=== PATIENT | female | born 1955 | race Caucasian/White ===

== ENCOUNTER 2018-08-22 07:48 | Inpatient (IN) | payer MEDICARE, SELFPAY ==
[2018-08-22] VITALS (12 sets, daily range): BP systolic 104–139; BP diastolic 65–74; PULSE 75–85; RESP 17–20; TEMP 36.6–37.2; O2SAT 79–97; BMI 15.3; BMI 13.6; BMI 13.7
--- NOTE | 2018-08-22 08:04 | EKG12_ITS ---
Test Reason : SOB Blood Pressure : / mmHG Vent. Rate : 071 BPM Atrial Rate : 071 BPM P-R Int : 120 ms QRS Dur : 068 ms QT Int : 388 ms P-R-T Axes : 087 087 036 degrees QTc Int : 421 ms Normal sinus rhythm Poor R-Wave Progression Confirmed by PAMELA BARTLETT, GARY ([id number]), offline editor YAHAIRA NGUYEN ([id number]) on 08/25/2018 11:41:40 AM Referred By: Jovan Sarmiento Confirmed By:GARY SANTIAGO MD
--- NOTE | 2018-08-22 08:04 | RAD_ITS ---
STUDY: X-RAY CHEST REASON FOR EXAM: Female, 63 years old. Worsening shortness of breath TECHNIQUE: Single AP portable view of the chest. COMPARISON: None. FINDINGS: There is hyperinflation of the lungs consistent with chronic obstructive lung disease (COPD). There is no demonstrated pleural abnormality. 1 cm nodule over the left lower lung field likely represents a nipple shadow. Normal size heart. Normal mediastinum and carlton. Normal visualized pulmonary arteries. Normal visualized aortic arch and descending thoracic aorta. There are diffuse degenerative changes of the visualized thoracic spine. Normal visualized ribs, clavicles, and shoulders. There is no demonstrated abnormality of the visualized soft tissue structures of the upper abdomen. RAD/Chest 1 View (Portable) IMPRESSION: Hyperexpanded lungs, no superimposed acute pulmonary process Electronically Signed: Nick Zavala MD at 8:48 EDT , Service support ,
--- NOTE | 2018-08-22 08:07 | ED.VISSUMM ---
- ER Visit Summary Date of Service: 08/22/18 Chief Complaint: Shortness of breath History of Present Illness: The patient is a 63 F with a history of COPD, not on home oxygen. She complains of a 5-day history of increased shortness of breath, cough, wheezing. She does report chest heaviness that is worse with cough. She checked her oxygen saturation at home this morning and it was 75% on room air. She is scheduled to see a cable reeler in September, but does not currently follow with pulmonology. Physical Examination: Blood pressure is 139/74, temperature 98.9, heart rate 79, respiratory rate 20, pulse ox 79% on room air. At the time of my examination her oxygen saturation is in the high 90s on 2 L nasal cannula. Patient sitting upright in bed in no acute distress. She is speaking full sentences. Head and neck examination is grossly unremarkable. Heart is regular rate and rhythm. Lung sounds are diminished throughout. Abdomen is soft and nontender. Extremity examination reveals no significant calf tenderness or edema. Test Results: EKG is sinus at 71 with no sign of acute ischemia. Portable chest x-ray shows hyperexpanded lungs with no acute process. CBC and chemistry studies normal. Troponin negative. Emergency Department Course and Treatment: Patient was initially given cycle of aerosols. O2 sat was 100% on 2 L. She was taken off of oxygen and dropped to 89% just sitting at rest. She was placed back on oxygen. She will be given a small dose of IV Solu-Medrol. She does list an allergy to prednisone but states it keeps her from sleeping. She will also be given a p.o. dose of Levaquin. Treatment Plan: [] Disposition: Admit Impression: COPD exacerbation with hypoxia This note was generated with [employer] dictation software. It may contain incorrect words, spelling, and punctuation that were not noted in review of the chart prior to signing ED Disposition - Plan for ED Patient: Referrals: Andrea Dalton DO [Primary Care Provider] -
[2018-08-22] MEDS: Ipratropium/Albuterol Sulfate 3 ML AMPUL.NEB INHALATION ×3 (08:30→22:01)
[2018-08-22] MEDS: Albuterol 2.5 MG/3 ML VIAL.NEB. INHALATION ×2 (08:30)
[2018-08-22 08:33] LABS: Absolute Lymphocyte Count 1.64 X10^3/ul (0.83-4.51); Basophil# 0.04 X10^3/uL; Basophil% 0.8 % (0-1); Eosinophil# 0.16 X10^3/uL; Eosinophils% 3.1 % (0-5); Hematocrit 42.4 % (37-47); Lymphocyte # 1.64 X10^3/ul (4.0); Lymphocyte % 31.4 % (19-41); Mean Corpuscular Hgb 30.9 pg (27.0-32.0); Mean Corpuscular Volume 93.6 fL (81-99); Mean Platelet Vol. 8.9 fl (6.2-12.0); Monocyte# 0.33 X10^3/uL; Monocyte% 6.3 % (0-10); Neutrophil # 3.04 X10^3/uL (2.7-7.7); Neutrophil % 58.2 % (47-70); Platelet Count 209 K/mm3 (150-450); RBC Distribution Width CV 13.8 % (11.6-14.6); RBC Distribution Width SD 46.8 fl (35.1-43.9); Red Blood Count 4.53 M/mm3 (4.2-5.4); White Blood Count 5.2 K/mm3 (4.4-11.0)
[2018-08-22 08:34] LABS: POSITIVE COUNT NO; POSITIVE DIFFERENTIAL NO; POSITIVE MORPHOLOGY NO
[2018-08-22] MEDS: 0.9% Normal Saline 1,000 ML 15 ML IV (08:36)
[2018-08-22 08:46] LABS: Anion Gap 6 (5-15); BUN 10 mg/dL (7-18); BUN/Creat Ratio 11.8 RATIO (10-20); Calcium,Total 9.1 mg/dL (8.5-10.1); Chloride 106 mmol/L (98-107); Creatinine, Serum 0.85 mg/dL (0.55-1.02); EST Glomerular Filtration Rate 72 mL/min (>60); Est Glom Filt Rate - Afr Amer 87 mL/min (>60); Estimated Creatinine Clearance 38.95 ml/min; Glucose 103 mg/dL (74-106); Potassium 3.9 mmol/L (3.5-5.1); Sodium Level 141 mmol/L (136-145)
[2018-08-22] MEDS: levoFLOXacin 500 MG Tablet PO (09:48)
[2018-08-22] MEDS: DiphenhydrAMINE 50 MG/ML Syringe 12.5 MG IV (10:48)
--- NOTE | 2018-08-22 12:00 | CASEMGMT ---
Addendum entered by Christa Clark 08/22/18 15:48: D/T pt having concerns of electrical safety issues within her home and Oxygen concentrator, call placed to [facility]. Inquired about Liquid O2 and spoke with [facility]. She stated d/t safety concerns, they are able to provide liquid O2 to pt on discharge if she does qualify for O2. Pt made aware and voiced appreciation. See Green sheet on chart with instructions for home O2 and portability if pt discharges over the weekend. Original Note: RN CM ANIMAL GROOMER CM to room to meet with patient for initial transition planning/care coordination assessment. HINA JUAN introduced self and role at [facility]. Pt voices understanding and consents to assessment at this time. Pt sitting on edge of bed in no distress at this time. Pt is A/O at this time and answers all questions appropriately. Care providers, pharmacy, and demographics verified/updated at this time. PCP: [facility] Specialists: Scheduled to see Dr Keith in September as a new patient. [facility] Insurance: [facility] A & B Prescription Benefit: None Living Will/HPOA: Pt does not currently have LW/HCPOA. [facility] would like to talk to CESIA to complete paperwork. CESIA Justin, notified. LNOK: , daughter Living Arrangements: States she lives with her and 29-yr-old daughter in a one-story apt that they rent. States she is independent with personal ADL's, such as bathing/dressing up until recently when I got so short of breath. States her daughter is supportive and assists her. States daughter does cleaning, yardwork, and helping to carry in groceries. Otherwise, pt states she manages all other home mgmt tasks such as cooking and laundry. Transportation: Pt states drives self and states no transportation concerns at this time. Daughter also drives and can assist. DME: States has the following DME: Rails/grab bars, hand-held shower, cane. has shower chair she could use if she needed it. Does not have home O2 or nebulizer. She states she lives in an old building/duplex and has concerns about the electrical system in her place. She states my is on oxygen and I don't think the electrical system could handle another thing added to it. States if she would need Home O2 on discharge she is very concerned about the electric shorting out and causing a fire if another oxygen concentrator is used in her home. She states the landlord is aware of the electrical issues, but states, I don't think he cares as long as he gets his money. Pt states no need for further DME at this time. HHC/SNF: Has never been to a SNF or used HHC. Declines offer of HHC for skilled nurse visit/follow-up. Also discussed Homebound requirements by [facility] and pt states she is not homebound. Pt wishes to return home and states has no concerns with going home at time of discharge. Pt states is on disability and that she has limited resources but states, I make it work. Offered to have SW talk with her to provide additional resources but pt declines. CM to follow for home oxygen needs and any further discharge planning/needs. Pt voices no further concerns/needs at this time. Advised pt to ask for CM if any further questions/concerns/needs arise. Voices understanding. PLAN: Home with family support and discharge plans in place. Will need home O2 qualification testing completed prior to discharge. If pt qualifies for home O2 on discharge, green sheet on chart for [employer]. SW consult for Advanced Directives. Carla CANTOR RN CM Initialized on 08/22/18 12:16 - END OF NOTE
--- NOTE | 2018-08-22 12:16 | CASEMGMT ---
RN YESSICA CERTIFIED ETHICAL HACKER CM to room to meet with patient for initial transition planning/care coordination assessment. HINA JUAN introduced self and role at [facility]. Pt voices understanding and consents to assessment at this time. Pt sitting on edge of bed in no distress at this time. Pt is A/O at this time and answers all questions appropriately. Care providers, pharmacy, and demographics verified/updated at this time. PCP: [facility] Specialists: Scheduled to see Dr Keith in September as a new patient. [facility] Insurance: [facility] A & B Prescription Benefit: None Living Will/HPOA: Pt does not currently have LW/HCPOA and declines info at this time. Pt made aware that he can contact SW as an out-pt and make appt in the future if he decides he would like to talk with someone about this or would like to utilize [facility] social work for advanced directive completion. Given [employer] Rac card with information and contact number. Pt expresses understanding. States does not have LW or HCPOA . Interested in more information but states does not want to talk with SW at this time to complete paperwork. Provided information on advanced directives and given Social Service rac card with number to call if chooses in the future to utilize [facility] social work for advanced directive completion. Educated patient that, if patient so chooses, can come back to [facility] and meet with a SW as an outpatient to complete health care advanced directives. Patient expresses understanding. LNOK: , daughter Living Arrangements: States she lives with her and 29-yr-old daughter in a one-story apt that they rent. States she is independent with personal ADL's, such as bathing/dressing up until recently when I got so short of breath. States her daughter is supportive and assists her. States daughter does cleaning, yardwork, and helping to carry in groceries. Otherwise, pt states she manages all other home mgmt tasks such as cooking and laundry. Transportation: Pt states drives self and states no transportation concerns at this time. Daughter also drives and can assist. DME: States has the following DME: Rails/grab bars, hand-held shower, cane. has shower chair she could use if she needed it. Does not have home O2 or nebulizer. She states she lives in an old building/duplex and has concerns about the electrical system in her place. She states my is on oxygen and I don't think the electrical system could handle another thing added to it. States if she would need Home O2 on discharge she is very concerned about the electric shorting out and causing a fire if another oxygen concentrator is used in her home. She states the landlord is aware of the electrical issues, but states, I don't think he cares as long as he gets his money. Pt states no need for further DME at this time. HHC/SNF: Has never been to a SNF or used HHC. Declines offer of HHC for skilled nurse visit/follow-up. Also discussed Homebound requirements by [facility] and pt states she is not homebound. Pt wishes to return home and states has no concerns with going home at time of discharge. CM to follow for home oxygen needs and any further discharge planning/needs. Pt voices no further concerns/needs at this time. Advised pt to ask for CM if any further questions/concerns/needs arise. Voices understanding. PLAN: Home with family support and discharge plans in place. Will need home O2 qualification testing completed prior to discharge. If pt qualifies for home O2 on discharge, green sheet on chart for [employer]. Carla CANTOR RN CM
--- NOTE | 2018-08-22 12:24 | PCM.HP.STD ---
Problem List (1) COPD exacerbation Status: Acute (2) Chronic diarrhea Status: Chronic (3) Cancer adenomatous polyp Status: Chronic (4) Cachexia Status: Chronic History of Present Illness Date of Admission: 08/22/18 Chief Complaint: Progressive worsening of shortness of breath, cough and wheezing for 5 days The patient is a 63 year old F with history of COPD, was scheduled to see Dr. Keith came to ER with shortness of breath cough and wheezing. Patient has progressive worsening of cough for more than a year with a small amount of exertion/climbing stairs but got worse for last 5 days along with cough, wheezing and right upper chest heaviness, worse with coughing. Patient I will also first-time hemoptysis, small amount teased with cough on past 08/19 2018. Patient also has chronic diarrhea since 2012 about 10-12 loose to soft bowel movements every day. Patient had multiple colonoscopy about 4 colonoscopies between 2013?16 with multiple polyps removed, part of which one was cancerous, 2-3 precancerous and rest benign. Patient did follow with Dr. Carr, past [facility] and Dr. Gregory in the past. She does not want to follow any GI because her insurance will not pay for further polypectomy. Patient denies obvious GI bleed including melena, hematochezia or Hematemesis She also has loss of weight with her weight was about 116 3 years ago and gradually decreased to 70 pounds. [] Past Medical History Past Medical History (Chronic Problems): Chronic Problems Chronic diarrhea (Chronic) Cancer adenomatous polyp (Chronic) Cachexia (Chronic) Allergies azithromycin Adverse Reaction (Verified 08/22/18 07:51) Hives cucumber Adverse Reaction (Verified 08/22/18 11:20) Swelling loratadine [From Claritin] Adverse Reaction (Verified 08/22/18 07:51) Itching prednisone Adverse Reaction (Verified 08/22/18 11:19) Other doesnt sleep. peaches Adverse Reaction (Uncoded 08/22/18 11:20) Swelling Home Medications: Ambulatory Orders Medication Instructions Recorded Albuterol Inhaler [Ventolin Hfa 1 - 2 puff INHALATION Q4H PRN PRN 08/22/18 (SP)] Duloxetine HCl 60 mg PO DAILY 08/22/18 Melatonin 10 mg PO QHS PRN 08/22/18 Smoking Status: Current every day smoker Tobacco Use: Cigarettes - *Family History Paternal History Items: Heart Disease Review of Systems Constitutional: Reports: Anorexia, Chills, Malaise, Weakness, Weight Change, Fatigue. Denies: Fever HEENT: Denies: Head Aches, Sinus Congestion, Sinus Drainage Cardiovascular: Reports: Chest Tightness. Denies: Chest Pain, Palpitations Respiratory: Reports: Cough, Hemoptysis, Shortness of Breath, Shortness of breath at rest, Shortness of breath upon exertion, Wheezing, - - Patient also has dyspnea and orthopnea and laying down but denies PND. Denies: Sputum production Gastrointestinal: Denies: Abdominal Pain, Hematemesis, Hematochezia, Nausea, Melena, Vomiting Genitourinary: Denies: Dysuria Musculoskeletal: Denies: Joint Pain, Joint Tenderness Skin: Denies: Rash, Wounds Neurological: Denies: Numbness, Tingling, Focal weakness Psychiatric: Denies: Anxiety, Depression, Homicidal Ideations, Suicidal Ideations Hematologic/ Lymphatic: Denies: Easy Bruising, Easy Bleeding VTE Information - Inpt Only VTE Present on Admission: No VTE Mechan Device Prophylaxis: None VTE Pharm Prophylaxis ordered?: Yes Patient Problems: Active and Suspected Problems COPD exacerbation (Acute) - Physical Exam General: Alert, Oriented x3, Cooperative HEENT: Atraumatic, PERRLA, EOMI, Normocephalic Neck: Supple, No JVD, Negative Carotid Bruits Lungs: Diminished - Air entry severely diminished bilaterally, Rhonchi, Short of Breath, Wheezes Cardiovascular: Regular rate, Regular Rhythm, Normal S1, Normal S2, No murmurs Abdomen: Bowel Sounds Present, Soft, Non Tender, Non-Distended Extremities: No edema, Capillary Refill Less than 3 Seconds Skin: No rashes, No breakdown Musculoskeletal: No Tenderness to Palpation of Joints or Extremities, Arthritic Changes, Muscle Wasting Lymphatic: No Cervical, Supraclavicular, or Inguinal Adenopathy Neurological: Cranial nerves II-XII grossly intact, Deep Tendon Reflexes 2+/4 and Symmetrical, Neuro grossly intact Psych/Mental Status: Normal Affect, Appropriate Vital Signs Temp Pulse Resp BP Pulse Ox 98.0 F 81 18 104/70 97 08/22/18 10:48 08/22/18 11:35 08/22/18 10:48 08/22/18 10:48 04/26/19 10:48 Oxygen Flow Rate (L/min) 2 Oxygen Delivery Method Nasal Cannula Weight: 70 lb Body Mass Index (BMI) 13.6 Laboratory Tests Past 24 Hrs 08/22/18 08/22/18 08:24 08:24 WBC 5.2 RBC 4.53 Hgb 14.0 Hct 42.4 MCV 93.6 MCH 30.9 MCHC 33.0 RDW 13.8 RDW Differential 46.8 H Plt Count 209 MPV 8.9 Immature Gran % (Auto) 0.200 Neut % (Auto) 58.2 Lymph % (Auto) 31.4 [place] % (Auto) 6.3 Eos % (Auto) 3.1 Baso % (Auto) 0.8 Absolute Neuts (auto) 3.0 Absolute Lymphs (auto) 1.64 Total Counted Not Reportable Sodium 141 Potassium 3.9 Chloride 106 Carbon Dioxide 29.0 Anion Gap 6 BUN 10 Creatinine 0.85 Estim Creat Clear Calc 38.95 Est GFR (MDRD) Af Amer 87 Est GFR (MDRD) Non-Af 72 BUN/Creatinine Ratio 11.8 Glucose 103 Calcium 9.1 Troponin I < 0.015 Assessment/Plan All Active Problems COPD exacerbation (Acute) The patient is a 63 year old F with history of COPD, was scheduled to see Dr. Keith came to ER with shortness of breath cough and wheezing. Patient has progressive worsening of cough for more than a year with a small amount of exertion/climbing stairs but got worse for last 5 days along with cough, wheezing and right upper chest heaviness, worse with coughing. Patient I will also first-time hemoptysis, small amount teased with cough on past 08/19 2018. Patient also has chronic diarrhea since 2012 about 10-12 loose to soft bowel movements every day. Patient had multiple colonoscopy about 4 colonoscopies between 2013?16 with multiple polyps removed, part of which one was cancerous, 2-3 precancerous and rest benign. Patient did follow with Dr. Carr, past [facility] and Dr. Gregory in the past. She does not want to follow any GI because her insurance will not pay for further polypectomy. Patient denies obvious GI bleed including melena, hematochezia or Hematemesis She also has loss of weight with her weight was about 116 3 years ago and gradually decreased to 70 pounds. 1. COPD exacerbation with respiratory distress: The patient is being admitted on MedSurg floor. On bronchodilator, DuoNeb, IV Solu-Medrol, incentive spirometry and chest physiotherapy. Sputum culture ordered. Chest x-ray shows chronic features of COPD but no superimposed acute pulmonary process. 2. Chest heaviness pleuritic in nature: EKG is normal sinus rhythm no ST-T changes. Troponin is negative. Patient does not have history of coronary artery disease, no previous stents. 3. Chronic diarrhea with history of cancerous adenomatous polyp: Chronic features. Patient was advised to follow-up with GI/general surgeon as an outpatient but she is not convinced as her insurance does not cover. 4. 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 On nutritional supplement Chronic nicotine dependence: Patient started smoking at the age of 20 with 1 pack per daily and slowly she cut down to 1-1/2 pack lasting 2 to 3 days. She is still smoking. On nicotine patch 5. DVT prophylaxis: Because of her underweight/BMI 13.7, will keep Lovenox 30 minutes subcu daily to avoid GI bleed. Stool for occult blood ordered Laboratory Results 08/22/18 08:24: WBC 5.2, RBC 4.53, Hgb 14.0, Hct 42.4, MCV 93.6, MCH 30.9, MCHC 33.0, RDW 13.8, RDW Differential 46.8 H, Plt Count 209, MPV 8.9, Immature Gran % (Auto) 0.200, Neut % (Auto) 58.2, Lymph % (Auto) 31.4, [place] % (Auto) 6.3, Eos % (Auto) 3.1, Baso % (Auto) 0.8, Absolute Neuts (auto) 3.0, Absolute Lymphs (auto) 1.64, Total Counted Not Reportable 08/22/18 08:24: Sodium 141, Potassium 3.9, Chloride 106, Carbon Dioxide 29.0, Anion Gap 6, BUN 10, Creatinine 0.85, Estim Creat Clear Calc 38.95, Est GFR (MDRD) Af Amer 87, Est GFR (MDRD) Non-Af 72, BUN/Creatinine Ratio 11.8, Glucose 103, Calcium 9.1, Troponin I < 0.015 Clinical Impression(s) from Imaging Studies Chest X-Ray 04/26/19 08:04 IMPRESSION: Hyperexpanded lungs, no superimposed acute pulmonary process = Code Visit Inpatient E&M: 83849 Subs Hosp L3
[2018-08-22] MEDS: guaiFENesin 1,200 MG Tablet 1200 MG PO ×2 (12:25→21:36)
[2018-08-22] MEDS: Doxycycline 100 MG CAPSULE PO ×2 (12:25→21:37)
[2018-08-22] MEDS: 0.9% Normal Saline 1,000 ML 75 ML IV (12:25)
[2018-08-22] MEDS: Famotidine 20 MG Tablet PO ×2 (12:25→21:36)
[2018-08-22] MEDS: Enoxaparin 30 MG/0.3 ML Syringe SC (12:30)
--- NOTE | 2018-08-22 13:44 | CASEMGMT ---
Social Work Note CESIA updated that pt would like information regarding advanced directives. CESIA met with pt, introduced self and role at [facility]. Pt is alert and orientated x4. Pt's daughter present in room. Pt gave this worker permission to speak to her in front of her guest. SW provided pt with advanced directives documents, encouraged pt to review documents and talk to family members. Pt denied wanting to complete documents at this time, does confirm she would like time to review documents. CESIA informed pt that SW is available to complete documents tomorrow if pt wishes to do so. CESIA also provided pt with Social Service Rac Card, informed pt she is able to call number on card if she discharges and would like to make appointment to complete documents at later time. Pt states understanding. Nola Lugo SCIENTIFIC PROCESS OPERATOR, TRAFFIC TECHNICIAN
[2018-08-22] MEDS: 0.9% NaCl Peripheral Flush Adult/Peds IV (14:49)
[2018-08-22 22:55] LABS: Bedside Glucose 168 mg/dL (70-110)
[2018-08-23] VITALS (14 sets, daily range): BP systolic 102–132; BP diastolic 54–77; PULSE 72–107; RESP 18–24; TEMP 36.4–36.8; O2SAT 95–100
--- NOTE | 2018-08-23 06:13 | NURSING ---
CPS called for breathing treatment per pt request.
[2018-08-23] MEDS: Ipratropium/Albuterol Sulfate 3 ML AMPUL.NEB INHALATION ×4 (06:30→22:25)
[2018-08-23] MEDS: Enoxaparin 30 MG/0.3 ML Syringe SC (09:50)
[2018-08-23] MEDS: Doxycycline 100 MG CAPSULE PO ×2 (09:50→21:55)
[2018-08-23] MEDS: Famotidine 20 MG Tablet PO ×2 (09:51→21:55)
[2018-08-23] MEDS: guaiFENesin 1,200 MG Tablet 1200 MG PO ×2 (09:51→21:55)
--- NOTE | 2018-08-23 10:25 | PCM.PN.HOSP ---
Patient Problems: Active and Suspected Problems COPD exacerbation (Acute) Subjective: Patient seen and examined. She still feels horrible but states she is better than yesterday. Still complains of shortness of breath and was on 3 L of oxygen at the time of review. Still has a nonproductive cough as well as wheezing but denies any chest pain. Review of systems otherwise negative. Patient says she has been diagnosed with COPD but has not yet established a relationship with a paper products printer. She is scheduled to see Dr. Keith in September. Labs and vitals reviewed. Vitals/I&O's: Vital Signs Temp Pulse Resp BP Pulse Ox 98.2 F 80 20 H 122/72 H 96 08/23/18 08:01 08/23/18 08:06 08/23/18 08:01 08/23/18 08:01 08/23/18 08:01 Oxygen Flow Rate (L/min) 3 Oxygen Delivery Method Nasal Cannula Weight: 70 lb Body Mass Index (BMI) 13.6 Intake and Output for Last 24 Hours 08/21/18 08/22/18 08/23/18 23:59 23:59 23:59 Intake Total 950 / 950 Balance 950 / 950 General: Alert, Oriented x3, Cooperative, No apparent distress, - - cachectic, looks older than her stated age HEENT: Atraumatic, PERRLA, EOMI, Normocephalic Oral: Dry Mucosa Neck: Supple, No JVD, Negative Carotid Bruits Lungs: - - decreased breath sounds in all lung lester with expiratory wheezing bilaterally. Few bibasal crackles auscultated. on 3L of oxygen Cardiovascular: Regular rate, Regular Rhythm, Normal S1, Normal S2, No murmurs Abdomen: Bowel Sounds Present, Soft, Non Tender Extremities: No clubbing, No cyanosis, No edema, Capillary Refill Less than 3 Seconds Skin: No rashes, No breakdown Musculoskeletal: No Tenderness to Palpation of Joints or Extremities Lymphatic: No Cervical, Supraclavicular, or Inguinal Adenopathy Neurological: Cranial nerves II-XII grossly intact, Neuro grossly intact, Motor Exam 5/5 strength throughout Psych/Mental Status: Normal Affect, Appropriate, Alert and oriented to time, place, person, mood and affect Microbiology Past 72 Hours 08/23/18 09:36 Mucosa - Nasopharyngeal Influenza Types A,B Direct FA (TUAN) - Final 08/23/18 03:07 Stool Stool Occult Blood (TUAN) - Final 08/22/18 22:30 Sputum, Expectorated/Coughed Gram Stain - Preliminary Laboratory Results 08/22/18 21:39: POC Glucose 168 H Current Medications Acetaminophen (Tylenol) 650 mg PO Q6H PRN PRN PRN Reason: Mild Pain (scale 0-3)/T>100.7 Albuterol Sulfate (Ventolin Aerosols) 2.5 mg INHALATION Q2H PRN PRN PRN Reason: SHORTNESS OF BREATH Albuterol/Ipratropium (Duoneb) 3 ml INHALATION Q4H.RT [facility] Last Admin: 08/23/18 06:30 Dose: 3 ml Bisacodyl (Dulcolax) 10 mg RECTAL DAILY PRN PRN PRN Reason: Constipation Docusate Sodium (Colace) 200 mg PO BID PRN PRN PRN Reason: Constipation Doxycycline Monohydrate (Doxycycline) 100 mg PO BID [facility] Last Admin: 08/23/18 09:50 Dose: 100 mg Enoxaparin Sodium (Lovenox) 30 mg SC DAILY [facility] Last Admin: 08/23/18 09:50 Dose: 30 mg Famotidine (Pepcid) 20 mg PO BID [facility] Last Admin: 08/23/18 09:51 Dose: 20 mg Guaifenesin (Mucinex) 1,200 mg PO BID [facility] Last Admin: 08/23/18 09:51 Dose: 1,200 mg Sodium Chloride () 1,000 mls @ 15 mls/hr IV .Q48H [facility] Last Admin: 08/22/18 08:36 Dose: 15 mls/hr Sodium Chloride () 250 mls @ 15 mls/hr IV .[id number] PRN PRN Reason: SALINE FLUSH Methylprednisolone (Solu-Medrol) 40 mg IV Q8 [facility] Last Admin: 08/23/18 05:28 Dose: 40 mg Oxycodone HCl (Oxyir) 5 mg PO Q4H PRN PRN PRN Reason: Moderate Pain (pain scale 4-5) Prochlorperazine Edisylate (Compazine Iv) 10 mg IV Q6H PRN PRN PRN Reason: Nausea/Vomiting Sodium Chloride () 5 - 15 ml IV UD PRN PRN Reason: SALINE FLUSH Last Admin: 08/22/18 14:49 Dose: 10 ml Medical Necessity - Tobacco Use Smoking Status: Current every day smoker Tobacco Use: Cigarettes Assessment/Plan All Active Problems COPD exacerbation (Acute) 1. Acute hypoxic respiratory insufficiency due to COPD exacerbation patient still on 3L of oxygen, not on oxygen at home on IV solumedrol, breathing treatments and chest physiotherapy says she was diagnosed with COPD in ~ [id number], and was put on several inhalers; however, she now only uses albuterol prn as she couldnt afford the other inhalers, which she doesnt remember the names of. will try to wean off oxygen to maintain saturation above 90%. hold of pulmonology consult for now, as patient is feeling better. Has an appointment with Dr Keith in September 2018. influenza screen was negative. However, will still get respiratory panel, as well for several incidents where influenza screen was negative but respiratory panel came back positive for influenza. Sputum culture pending. Counseled strongly to quit smoking. will need ambulatory pulse ox prior to discharge on PO doxycycline and guafenesin cough syrup 2. COPD exacerbation: as under 1. 3. History of adenomatous polyps has a history fo chronic diarrhea, and had colonoscopy done with showed adenomatous polyps on pathology after resection. has been lost to follow up with Gi and general surgery due to problems with her insurance stool for occult blood done during this admission was negative. will monitor 4. Cachexia likely due to COPD and chronic diarrhea as well as malnutrition BMI is 13.7 nutrition consulted. 6. Chronic nicotine dependence: says she now smokes only a few cigarettes a day. Counselled strongly to quit completely. Nicotine patch 21mg daily. DVT prophylaxis: lovenox 30mg daily.; Code Visit Inpatient E&M: 51089 Subs Hosp L3
--- NOTE | 2018-08-23 10:29 | PN_ITS ---
Patient Problems: Active and Suspected Problems COPD exacerbation (Acute) Subjective: Patient seen and examined. She still feels horrible but states she is better than yesterday. Still complains of shortness of breath and was on 3 L of oxygen at the time of review. Still has a nonproductive cough as well as wheezing but denies any chest pain. Review of systems otherwise negative. 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 She is scheduled to see Dr. Keith in September. Labs and vitals reviewed. Vitals/I&O's: Vital Signs Temp Pulse Resp BP Pulse Ox 98.2 F 80 20 H 122/72 H 96 08/23/18 08:01 08/23/18 08:06 08/23/18 08:01 08/23/18 08:01 08/23/18 08:01 Oxygen Flow Rate (L/min) 3 Oxygen Delivery Method Nasal Cannula Weight: 70 lb Body Mass Index (BMI) 13.6 Intake and Output for Last 24 Hours 08/21/18 08/22/18 08/23/18 23:59 23:59 23:59 Intake Total 950 / 950 Balance 950 / 950 General: Alert, Oriented x3, Cooperative, No apparent distress, - - cachectic, looks older than her stated age HEENT: Atraumatic, PERRLA, EOMI, Normocephalic Oral: Dry Mucosa Neck: Supple, No JVD, Negative Carotid Bruits Lungs: - - decreased breath sounds in all lung lester with expiratory wheezing bilaterally. Few bibasal crackles auscultated. on 3L of oxygen Cardiovascular: Regular rate, Regular Rhythm, Normal S1, Normal S2, No murmurs Abdomen: Bowel Sounds Present, Soft, Non Tender Extremities: No clubbing, No cyanosis, No edema, Capillary Refill Less than 3 Seconds Skin: No rashes, No breakdown Musculoskeletal: No Tenderness to Palpation of Joints or Extremities Lymphatic: No Cervical, Supraclavicular, or Inguinal Adenopathy Neurological: Cranial nerves II-XII grossly intact, Neuro grossly intact, Motor Exam 5/5 strength throughout Psych/Mental Status: Normal Affect, Appropriate, Alert and oriented to time, place, person, mood and affect Microbiology Past 72 Hours 08/23/18 09:36 Mucosa - Nasopharyngeal Influenza Types A,B Direct FA (TUAN) - Final 08/23/18 03:07 Stool Stool Occult Blood (TUAN) - Final 08/22/18 22:30 Sputum, Expectorated/Coughed Gram Stain - Preliminary Laboratory Results 08/22/18 21:39: POC Glucose 168 H Current Medications Acetaminophen (Tylenol) 650 mg PO Q6H PRN PRN PRN Reason: Mild Pain (scale 0-3)/T>100.7 Albuterol Sulfate (Ventolin Aerosols) 2.5 mg INHALATION Q2H PRN PRN PRN Reason: SHORTNESS OF BREATH Albuterol/Ipratropium (Duoneb) 3 ml INHALATION Q4H.RT [facility] Last Admin: 08/23/18 06:30 Dose: 3 ml Bisacodyl (Dulcolax) 10 mg RECTAL DAILY PRN PRN PRN Reason: Constipation Docusate Sodium (Colace) 200 mg PO BID PRN PRN PRN Reason: Constipation Doxycycline Monohydrate (Doxycycline) 100 mg PO BID [facility] Last Admin: 08/23/18 09:50 Dose: 100 mg Enoxaparin Sodium (Lovenox) 30 mg SC DAILY [facility] Last Admin: 08/23/18 09:50 Dose: 30 mg Famotidine (Pepcid) 20 mg PO BID [facility] Last Admin: 08/23/18 09:51 Dose: 20 mg Guaifenesin (Mucinex) 1,200 mg PO BID [facility] Last Admin: 08/23/18 09:51 Dose: 1,200 mg Sodium Chloride () 1,000 mls @ 15 mls/hr IV .Q48H [facility] Last Admin: 08/22/18 08:36 Dose: 15 mls/hr Sodium Chloride () 250 mls @ 15 mls/hr IV .[id number] PRN PRN Reason: SALINE FLUSH Methylprednisolone (Solu-Medrol) 40 mg IV Q8 [facility] Last Admin: 08/23/18 05:28 Dose: 40 mg Oxycodone HCl (Oxyir) 5 mg PO Q4H PRN PRN PRN Reason: Moderate Pain (pain scale 4-5) Prochlorperazine Edisylate (Compazine Iv) 10 mg IV Q6H PRN PRN PRN Reason: Nausea/Vomiting Sodium Chloride () 5 - 15 ml IV UD PRN PRN Reason: SALINE FLUSH Last Admin: 08/22/18 14:49 Dose: 10 ml Medical Necessity - Tobacco Use Smoking Status: Current every day smoker Tobacco Use: Cigarettes Assessment/Plan All Active Problems COPD exacerbation (Acute) 1. Acute hypoxic respiratory insufficiency due to COPD exacerbation * patient still on 3L of oxygen, not on oxygen at home * on IV solumedrol, breathing treatments and chest physiotherapy * says she was diagnosed with COPD in ~ 2108-8869, and was put on several inhalers; however, she now only uses albuterol prn as she couldnt afford the other inhalers, which she doesnt remember the names of. * will try to wean off oxygen to maintain saturation above 90%. * hold of pulmonology consult for now, as patient is feeling better. Has an appointment with Dr Keith in September 2018. * influenza screen was negative. However, will still get respiratory panel, as well for several incidents where influenza screen was negative but respiratory panel came back positive for influenza. * Sputum culture pending. * Counseled strongly to quit smoking. * will need ambulatory pulse ox prior to discharge * on PO doxycycline and guafenesin cough syrup * 2. COPD exacerbation: as under 1. 3. History of adenomatous polyps * has a history fo chronic diarrhea, and had colonoscopy done with showed adenomatous polyps on pathology after resection. has been lost to follow up with Gi and general surgery due to problems with her insurance * stool for occult blood done during this admission was negative. * will monitor * 4. Cachexia likely due to COPD and chronic diarrhea as well as malnutrition * BMI is 13.7 * nutrition consulted. * 6. Chronic nicotine dependence: * says she now smokes only a few cigarettes a day. * Counselled strongly to quit completely. * Nicotine patch 21mg daily. * DVT prophylaxis: lovenox 30mg daily.; Code Visit Inpatient E&M: 80579 Subs Hosp L3
[2018-08-23] MEDS: 0.9% NaCl Peripheral Flush Adult/Peds IV (13:34)
--- NOTE | 2018-08-23 15:54 | NURSING ---
Spoke Dr Ross after she was contacted, regarding coughing fit, she said she would contact pharmacy. coughing fit has resolved after pt was instructed to slow down her breathing, not to force up the phlegm she feels she needs to expectorant. Cough med was given also.
[2018-08-24] VITALS (17 sets, daily range): BP systolic 107–123; BP diastolic 67–80; PULSE 62–100; RESP 18–24; TEMP 36.7–36.9; O2SAT 94–97
[2018-08-24] MEDS: Ipratropium/Albuterol Sulfate 3 ML AMPUL.NEB INHALATION ×6 (02:12→22:15)
[2018-08-24 07:33] LABS: Hematocrit 38.8 % (37-47); Lymphocyte % 8.8 % (19-41); Mean Corp Hgb Conc 33.5 g/gl (32-36); Mean Corpuscular Hgb 31.6 pg (27.0-32.0); Mean Corpuscular Volume 94.2 fL (81-99); Mean Platelet Vol. 9.4 fl (6.2-12.0); Monocyte% 3.8 % (0-10); Neutrophil # 6.99 X10^3/uL (2.7-7.7); Neutrophil % 87.3 % (47-70); Platelet Count 237 K/mm3 (150-450); RBC Distribution Width CV 13.9 % (11.6-14.6); RBC Distribution Width SD 45.8 fl (35.1-43.9); Red Blood Count 4.12 M/mm3 (4.2-5.4)
[2018-08-24 07:41] LABS: POSITIVE COUNT NO; POSITIVE DIFFERENTIAL NO; POSITIVE MORPHOLOGY NO
[2018-08-24 08:01] LABS: Anion Gap 6 (5-15); BUN 14 mg/dL (7-18); BUN/Creat Ratio 16.6 RATIO (10-20); Calcium,Total 9.5 mg/dL (8.5-10.1); Chloride 105 mmol/L (98-107); Creatinine, Serum 0.84 mg/dL (0.55-1.02); EST Glomerular Filtration Rate 73 mL/min (>60); Est Glom Filt Rate - Afr Amer 88 mL/min (>60); Estimated Creatinine Clearance 35.25 ml/min; Glucose 134 mg/dL (74-106); Sodium Level 141 mmol/L (136-145)
--- NOTE | 2018-08-24 09:25 | PCM.PN.HOSP ---
Patient Problems: Active and Suspected Problems COPD exacerbation (Acute) Subjective: Patient seen and examined. She complains of a cough which is more productive now. She still short of breath but is now on 2 L of oxygen. She denies any palpitations or dizziness, fever or chills, diarrhea vomiting. Review of systems otherwise negative. Labs and vitals reviewed. Vitals/I&O's: Vital Signs Temp Pulse Resp BP Pulse Ox 98.0 F 88 20 H 107/67 96 08/24/18 03:00 08/24/18 06:48 08/24/18 06:48 08/24/18 03:00 08/24/18 06:48 Oxygen Flow Rate (L/min) 2 Oxygen Delivery Method Nasal Cannula Weight: 69 lb 15.948 oz Body Mass Index (BMI) 13.6 Intake and Output for Last 24 Hours 08/22/18 08/23/18 08/24/18 23:59 23:59 23:59 Intake Total 950 / 950 450 / 450 Balance 950 / 950 450 / 450 General: Alert, Oriented x3, Cooperative, No apparent distress, - - cachectic HEENT: Atraumatic, PERRLA, EOMI, Normocephalic Oral: Dry Mucosa Neck: Supple, No JVD, Negative Carotid Bruits Lungs: - - decreased breath sounds in all lung lester with expiratory wheezing bilaterally. No wheezes or crackles. on 2L of oxygen Cardiovascular: Regular rate, Regular Rhythm, Normal S1, Normal S2, No murmurs Abdomen: Bowel Sounds Present, Soft, Non Tender Extremities: No clubbing, No cyanosis, No edema, Capillary Refill Less than 3 Seconds Skin: No rashes, No breakdown Musculoskeletal: No Tenderness to Palpation of Joints or Extremities Lymphatic: No Cervical, Supraclavicular, or Inguinal Adenopathy Neurological: Cranial nerves II-XII grossly intact, Neuro grossly intact, Motor Exam 5/5 strength throughout Psych/Mental Status: Normal Affect, Appropriate, Alert and oriented to time, place, person, mood and affect Microbiology Past 72 Hours 08/23/18 09:36 Mucosa - Nasopharyngeal Respiratory Panel (PCR) - Final 08/22/18 22:30 Sputum, Expectorated/Coughed Gram Stain - Final 08/23/18 09:36 Mucosa - Nasopharyngeal Influenza Types A,B Direct FA (TUAN) - Final 08/23/18 03:07 Stool Stool Occult Blood (TUAN) - Final Laboratory Results 08/24/18 05:55: WBC 8.0, RBC 4.12 L, Hgb 13.0, Hct 38.8, MCV 94.2, MCH 31.6, MCHC 33.5, RDW 13.9, RDW Differential 45.8 H, Plt Count 237, MPV 9.4, Immature Gran % (Auto) 0.100, Neut % (Auto) 87.3 H, Lymph % (Auto) 8.8 L, [place] % (Auto) 3.8, Eos % (Auto) 0.0, Baso % (Auto) 0.0, Absolute Neuts (auto) 7.0, Absolute Lymphs (auto) 0.70 L, Total Counted Not Reportable 08/24/18 05:55: Sodium 141, Potassium 4.0, Chloride 105, Carbon Dioxide 30.0, Anion Gap 6, BUN 14, Creatinine 0.84, Estim Creat Clear Calc 35.25, Est GFR (MDRD) Af Amer 88, Est GFR (MDRD) Non-Af 73, BUN/Creatinine Ratio 16.6, Glucose 134 H, Calcium 9.5 Current Medications Acetaminophen (Tylenol) 650 mg PO Q6H PRN PRN PRN Reason: Mild Pain (scale 0-3)/T>100.7 Albuterol Sulfate (Ventolin Aerosols) 2.5 mg INHALATION Q2H PRN PRN PRN Reason: SHORTNESS OF BREATH Albuterol/Ipratropium (Duoneb) 3 ml INHALATION Q4H.RT [facility] Last Admin: 08/24/18 06:48 Dose: 3 ml Bisacodyl (Dulcolax) 10 mg RECTAL DAILY PRN PRN PRN Reason: Constipation Docusate Sodium (Colace) 200 mg PO BID PRN PRN PRN Reason: Constipation Doxycycline Monohydrate (Doxycycline) 100 mg PO BID [facility] Last Admin: 08/23/18 21:55 Dose: 100 mg Enoxaparin Sodium (Lovenox) 30 mg SC DAILY [facility] Last Admin: 08/23/18 09:50 Dose: 30 mg Famotidine (Pepcid) 20 mg PO BID [facility] Last Admin: 08/23/18 21:55 Dose: 20 mg Guaifenesin (Mucinex) 1,200 mg PO BID [facility] Last Admin: 08/23/18 21:55 Dose: 1,200 mg Hydrocodone Bit/Homatropine Methylb (Hycodan Syrup) 5 ml PO Q6H PRN PRN PRN Reason: COUGH Last Admin: 08/24/18 05:07 Dose: 5 ml Sodium Chloride () 1,000 mls @ 15 mls/hr IV .Q48H [facility] Last Admin: 08/22/18 08:36 Dose: 15 mls/hr Sodium Chloride () 250 mls @ 15 mls/hr IV .[id number] PRN PRN Reason: SALINE FLUSH Methylprednisolone (Solu-Medrol) 40 mg IV Q8 [facility] Last Admin: 08/24/18 05:01 Dose: 40 mg Oxycodone HCl (Oxyir) 5 mg PO Q4H PRN PRN PRN Reason: Moderate Pain (pain scale 4-5) Prochlorperazine Edisylate (Compazine Iv) 10 mg IV Q6H PRN PRN PRN Reason: Nausea/Vomiting Sodium Chloride () 5 - 15 ml IV UD PRN PRN Reason: SALINE FLUSH Last Admin: 08/23/18 13:34 Dose: 10 ml Medical Necessity - Tobacco Use Smoking Status: Current every day smoker Tobacco Use: Cigarettes Assessment/Plan All Active Problems COPD exacerbation (Acute) 1. Acute hypoxic respiratory insufficiency due to COPD exacerbation patient now on 2L of oxygen. on IV solumedrol, breathing treatments and chest physiotherapy. respiratory panel is negative. sputum culture pending. on PO doxycycline. on guafenesine will consider pulmonology consult if she is still requiring oxygen tomorrow 2. COPD exacerbation: as under 1. 3. History of adenomatous polyps has a history of chronic diarrhea, and had colonoscopy done with showed adenomatous polyps on pathology after resection. has been lost to follow up with Gi and general surgery due to problems with her insurance stool for occult blood done during this admission was negative. will monitor 4. Cachexia likely due to COPD and chronic diarrhea as well as malnutrition BMI is 13.7 nutrition consulted. 6. Chronic nicotine dependence: Counselled strongly to quit completely. Nicotine patch 21mg daily. DVT prophylaxis: lovenox 30mg daily.; Code Visit Inpatient E&M: [id number] [facility] Hosp L3
--- NOTE | 2018-08-24 09:34 | PN_ITS ---
Patient Problems: Active and Suspected Problems COPD exacerbation (Acute) Subjective: Patient seen and examined. She complains of a cough which is more productive now. She still short of breath but is now on 2 L of oxygen. She denies any palpitations or dizziness, fever or chills, diarrhea vomiting. Review of systems otherwise negative. Labs and vitals reviewed. Vitals/I&O's: Vital Signs Temp Pulse Resp BP Pulse Ox 98.0 F 88 20 H 107/67 96 08/24/18 03:00 08/24/18 06:48 08/24/18 06:48 08/24/18 03:00 08/24/18 06:48 Oxygen Flow Rate (L/min) 2 Oxygen Delivery Method Nasal Cannula Weight: 69 lb 15.948 oz Body Mass Index (BMI) 13.6 Intake and Output for Last 24 Hours 08/22/18 08/23/18 08/24/18 23:59 23:59 23:59 Intake Total 950 / 950 450 / 450 Balance 950 / 950 450 / 450 General: Alert, Oriented x3, Cooperative, No apparent distress, - - cachectic HEENT: Atraumatic, PERRLA, EOMI, Normocephalic Oral: Dry Mucosa Neck: Supple, No JVD, Negative Carotid Bruits Lungs: - - decreased breath sounds in all lung lester with expiratory wheezing bilaterally. No wheezes or crackles. on 2L of oxygen Cardiovascular: Regular rate, Regular Rhythm, Normal S1, Normal S2, No murmurs Abdomen: Bowel Sounds Present, Soft, Non Tender Extremities: No clubbing, No cyanosis, No edema, Capillary Refill Less than 3 Seconds Skin: No rashes, No breakdown Musculoskeletal: No Tenderness to Palpation of Joints or Extremities Lymphatic: No Cervical, Supraclavicular, or Inguinal Adenopathy Neurological: Cranial nerves II-XII grossly intact, Neuro grossly intact, Motor Exam 5/5 strength throughout Psych/Mental Status: Normal Affect, Appropriate, Alert and oriented to time, place, person, mood and affect Microbiology Past 72 Hours 08/23/18 09:36 Mucosa - Nasopharyngeal Respiratory Panel (PCR) - Final 08/22/18 22:30 Sputum, Expectorated/Coughed Gram Stain - Final 08/23/18 09:36 Mucosa - Nasopharyngeal Influenza Types A,B Direct FA (TUAN) - Final 08/23/18 03:07 Stool Stool Occult Blood (TUAN) - Final Laboratory Results 08/24/18 05:55: WBC 8.0, RBC 4.12 L, Hgb 13.0, Hct 38.8, MCV 94.2, MCH 31.6, MCHC 33.5, RDW 13.9, RDW Differential 45.8 H, Plt Count 237, MPV 9.4, Immature Gran % (Auto) 0.100, Neut % (Auto) 87.3 H, Lymph % (Auto) 8.8 L, [place] % (Auto) 3.8, Eos % (Auto) 0.0, Baso % (Auto) 0.0, Absolute Neuts (auto) 7.0, Absolute Lymphs (auto) 0.70 L, Total Counted Not Reportable 08/24/18 05:55: Sodium 141, Potassium 4.0, Chloride 105, Carbon Dioxide 30.0, Anion Gap 6, BUN 14, Creatinine 0.84, Estim Creat Clear Calc 35.25, Est GFR (MDRD) Af Amer 88, Est GFR (MDRD) Non-Af 73, BUN/Creatinine Ratio 16.6, Glucose 134 H, Calcium 9.5 Current Medications Acetaminophen (Tylenol) 650 mg PO Q6H PRN PRN PRN Reason: Mild Pain (scale 0-3)/T>100.7 Albuterol Sulfate (Ventolin Aerosols) 2.5 mg INHALATION Q2H PRN PRN PRN Reason: SHORTNESS OF BREATH Albuterol/Ipratropium (Duoneb) 3 ml INHALATION Q4H.RT [facility] Last Admin: 08/24/18 06:48 Dose: 3 ml Bisacodyl (Dulcolax) 10 mg RECTAL DAILY PRN PRN PRN Reason: Constipation Docusate Sodium (Colace) 200 mg PO BID PRN PRN PRN Reason: Constipation Doxycycline Monohydrate (Doxycycline) 100 mg PO BID [facility] Last Admin: 08/23/18 21:55 Dose: 100 mg Enoxaparin Sodium (Lovenox) 30 mg SC DAILY [facility] Last Admin: 08/23/18 09:50 Dose: 30 mg Famotidine (Pepcid) 20 mg PO BID [facility] Last Admin: 08/23/18 21:55 Dose: 20 mg Guaifenesin (Mucinex) 1,200 mg PO BID [facility] Last Admin: 08/23/18 21:55 Dose: 1,200 mg Hydrocodone Bit/Homatropine Methylb (Hycodan Syrup) 5 ml PO Q6H PRN PRN PRN Reason: COUGH Last Admin: 08/24/18 05:07 Dose: 5 ml Sodium Chloride () 1,000 mls @ 15 mls/hr IV .Q48H [facility] Last Admin: 08/22/18 08:36 Dose: 15 mls/hr Sodium Chloride () 250 mls @ 15 mls/hr IV .[id number] PRN PRN Reason: SALINE FLUSH Methylprednisolone (Solu-Medrol) 40 mg IV Q8 [facility] Last Admin: 08/24/18 05:01 Dose: 40 mg Oxycodone HCl (Oxyir) 5 mg PO Q4H PRN PRN PRN Reason: Moderate Pain (pain scale 4-5) Prochlorperazine Edisylate (Compazine Iv) 10 mg IV Q6H PRN PRN PRN Reason: Nausea/Vomiting Sodium Chloride () 5 - 15 ml IV UD PRN PRN Reason: SALINE FLUSH Last Admin: 08/23/18 13:34 Dose: 10 ml Medical Necessity - Tobacco Use Smoking Status: Current every day smoker Tobacco Use: Cigarettes Assessment/Plan All Active Problems COPD exacerbation (Acute) 1. Acute hypoxic respiratory insufficiency due to COPD exacerbation * patient now on 2L of oxygen. * on IV solumedrol, breathing treatments and chest physiotherapy. * respiratory panel is negative. sputum culture pending. * on PO doxycycline. * on guafenesine * will consider pulmonology consult if she is still requiring oxygen tomorrow * 2. COPD exacerbation: as under 1. 3. History of adenomatous polyps * has a history of chronic diarrhea, and had colonoscopy done with showed adenomatous polyps on pathology after resection. has been lost to follow up with Gi and general surgery due to problems with her insurance * stool for occult blood done during this admission was negative. * will monitor * 4. Cachexia likely due to COPD and chronic diarrhea as well as malnutrition * BMI is 13.7 * nutrition consulted. * 6. Chronic nicotine dependence: * Counselled strongly to quit completely. * Nicotine patch 21mg daily. * DVT prophylaxis: lovenox 30mg daily.; Code Visit Inpatient E&M: [id number] [facility] L3
[2018-08-24] MEDS: Doxycycline 100 MG CAPSULE PO ×2 (10:27→21:27)
[2018-08-24] MEDS: Enoxaparin 30 MG/0.3 ML Syringe SC (10:27)
[2018-08-24] MEDS: guaiFENesin 1,200 MG Tablet 1200 MG PO ×2 (10:28→21:27)
[2018-08-24] MEDS: Famotidine 20 MG Tablet PO ×2 (10:28→21:27)
[2018-08-24] MEDS: 0.9% NaCl Peripheral Flush Adult/Peds IV (14:00)
--- NOTE | 2018-08-24 19:55 | NURSING ---
Pt just got back from the [place] with her O2 on c/o SOB. Called RT to check did have RT treatment 1/2 hr ago. States I felt like I am not getting any air Is purse lip breathing. RT her to see pt.
[2018-08-25] VITALS (21 sets, daily range): BP systolic 125–155; BP diastolic 73–94; PULSE 70–101; RESP 12–35; TEMP 36.3–36.8; O2SAT 82–99
[2018-08-25] MEDS: Ipratropium/Albuterol Sulfate 3 ML AMPUL.NEB INHALATION ×5 (02:20→23:15)
[2018-08-25 06:00] LABS: Absolute Lymphocyte Count 0.76 X10^3/ul (0.83-4.51); Absolute Neutrophil Count 8.2 X10^3/uL (2.0-7.7); Hematocrit 44.6 % (37-47); Hemoglobin 14.7 g/dl (12.0-15.0); Lymphocyte # 0.76 X10^3/ul (4.0); Lymphocyte % 8.1 % (19-41); Mean Corpuscular Hgb 31.2 pg (27.0-32.0); Mean Corpuscular Volume 94.7 fL (81-99); Monocyte# 0.42 X10^3/uL; Monocyte% 4.5 % (0-10); Neutrophil # 8.18 X10^3/uL (2.7-7.7); Neutrophil % 87.2 % (47-70); Platelet Count 249 K/mm3 (150-450); RBC Distribution Width CV 14.1 % (11.6-14.6); Red Blood Count 4.71 M/mm3 (4.2-5.4); White Blood Count 9.4 K/mm3 (4.4-11.0)
[2018-08-25 06:20] LABS: Anion Gap 5 (5-15); BUN 20 mg/dL (7-18); BUN/Creat Ratio 24.4 RATIO (10-20); Calcium,Total 9.5 mg/dL (8.5-10.1); Chloride 101 mmol/L (98-107); Creatinine, Serum 0.82 mg/dL (0.55-1.02); EST Glomerular Filtration Rate 75 mL/min (>60); Est Glom Filt Rate - Afr Amer 91 mL/min (>60); Estimated Creatinine Clearance 36.11 ml/min; Glucose 117 mg/dL (74-106); Potassium 4.7 mmol/L (3.5-5.1); Sodium Level 139 mmol/L (136-145)
[2018-08-25 06:21] LABS: POSITIVE COUNT NO; POSITIVE DIFFERENTIAL NO; POSITIVE MORPHOLOGY NO
--- NOTE | 2018-08-25 07:26 | CPS ---
patient working on PEP therapy on own.
[2018-08-25] MEDS: Enoxaparin 30 MG/0.3 ML Syringe SC (09:54)
[2018-08-25] MEDS: Doxycycline 100 MG CAPSULE PO ×2 (09:54→21:55)
[2018-08-25] MEDS: Famotidine 20 MG Tablet PO ×2 (09:54→21:55)
[2018-08-25] MEDS: guaiFENesin 1,200 MG Tablet 1200 MG PO ×2 (09:56→21:55)
[2018-08-25] MEDS: Albuterol 2.5 MG/3 ML VIAL.NEB. INHALATION (11:43)
[2018-08-25 12:21] LABS: Base Excess 6 mmol/L (-2 to +2); Bicarbonate 31.9 mmol/L (22-26); Blood Gas Specimen Type ART; O2 Delivery Device Nasal Can; PO2 81 mmHG (75-100); SITE R Brachial; SO2 94 % (95-99); Time Given 1209; Total Carbon Dioxide 34 mmol/L; pCO2 63.4 mmHg (35-45); pH 7.31 (7.35-7.45)
--- NOTE | 2018-08-25 13:00 | CPS ---
No critical values on ABG done at 1217, Dr. Sarmiento was notified of the result via [employer].
--- NOTE | 2018-08-25 14:34 | CPS ---
1332-Patient currently not in any distress, patient tried the BiPAP x 10 min, tolerated fair-good. BiPAP on Standby at bedside.
--- NOTE | 2018-08-25 14:37 | PCM.PN.HOSP ---
Patient Problems: Active and Suspected Problems COPD exacerbation (Acute) Subjective: Patient still feels short of breath even on walking to bathroom. She is very weak. Productive cough and feels rattling in chest. On 2 L of oxygen. Vitals/I&O's: Vital Signs Temp Pulse Resp BP Pulse Ox 98.0 F 101 H 13 155/79 H 99 08/25/18 09:50 08/25/18 13:32 08/25/18 13:32 08/25/18 09:50 08/25/18 13:32 Oxygen Flow Rate (L/min) [ 2 AMBULATION with Oxygen] Oxygen Flow Rate (L/min) [ 0 AMBULATING on Room Air] Oxygen Flow Rate (L/min) [At 0 REST on Room Air] Oxygen Flow Rate (L/min) 3.5 Oxygen Delivery Method Nasal Cannula Weight: 69 lb 15.948 oz Body Mass Index (BMI) 13.6 Intake and Output for Last 24 Hours 08/23/18 08/24/18 08/25/18 23:59 23:59 23:59 Intake Total 950 / 950 1750 / 1750 450 / 450 Balance 950 / 950 1750 / 1750 450 / 450 General: Alert, Oriented x3, Cooperative HEENT: Atraumatic, PERRLA, EOMI, Normocephalic Neck: Supple, No JVD, Negative Carotid Bruits Lungs: Diminished, Rhonchi, Short of Breath Cardiovascular: Regular rate, Regular Rhythm, Normal S1, Normal S2, No murmurs Abdomen: Bowel Sounds Present, Soft, Non Tender, Non-Distended Extremities: No edema, Capillary Refill Less than 3 Seconds Skin: No rashes, No breakdown Musculoskeletal: No Tenderness to Palpation of Joints or Extremities Neurological: Cranial nerves II-XII grossly intact Psych/Mental Status: Normal Affect, Appropriate Microbiology Past 72 Hours 08/23/18 09:36 Mucosa - Nasopharyngeal Respiratory Panel (PCR) - Final 08/22/18 22:30 Sputum, Expectorated/Coughed Gram Stain - Final 08/23/18 09:36 Mucosa - Nasopharyngeal Influenza Types A,B Direct FA (TUAN) - Final 08/23/18 03:07 Stool Stool Occult Blood (TUAN) - Final Laboratory Results 08/25/18 05:36: WBC 9.4, RBC 4.71, Hgb 14.7, Hct 44.6, MCV 94.7, MCH 31.2, MCHC 33.0, RDW 14.1, RDW Differential 47.0 H, Plt Count 249, MPV 9.0, Immature Gran % (Auto) 0.200, Neut % (Auto) 87.2 H, Lymph % (Auto) 8.1 L, Ogle % (Auto) 4.5, Eos % (Auto) 0.0, Baso % (Auto) 0.0, Absolute Neuts (auto) 8.2 H, Absolute Lymphs (auto) 0.76 L, Total Counted Not Reportable 08/25/18 05:36: Sodium 139, Potassium 4.7, Chloride 101, Carbon Dioxide 33.0 H, Anion Gap 5, BUN 20 H, Creatinine 0.82, Estim Creat Clear Calc 36.11, Est GFR (MDRD) Af Amer 91, Est GFR (MDRD) Non-Af 75, BUN/Creatinine Ratio 24.4 H, Glucose 117 H, Calcium 9.5 08/25/18 12:17: Specimen Type ART, Sample Site R Brachial, pH 7.31 L, Bicarbonate Actual 31.9 H, POC Total CO2 34, Base Excess 6 H, O2 Saturation 94 L, ABG pCO2 63.4 H, ABG pO2 81, Scott Test NA, O2 Delivery Device Nasal Can, Liter Flow 4.0, Blood Gas Notified Whom [facility] , Blood Gas Notified Time 1209 Current Medications Acetaminophen (Tylenol) 650 mg PO Q6H PRN PRN PRN Reason: Mild Pain (scale 0-3)/T>100.7 Albuterol Sulfate (Ventolin Aerosols) 2.5 mg INHALATION Q2H PRN PRN PRN Reason: SHORTNESS OF BREATH Last Admin: 08/25/18 11:43 Dose: 2.5 mg Albuterol/Ipratropium (Duoneb) 3 ml INHALATION Q4H.RT ULISES Last Admin: 08/25/18 10:43 Dose: 3 ml Bisacodyl (Dulcolax) 10 mg RECTAL DAILY PRN PRN PRN Reason: Constipation Docusate Sodium (Colace) 200 mg PO BID PRN PRN PRN Reason: Constipation Doxycycline Monohydrate (Doxycycline) 100 mg PO BID [facility] Last Admin: 08/25/18 09:54 Dose: 100 mg Enoxaparin Sodium (Lovenox) 30 mg SC DAILY [facility] Last Admin: 08/25/18 09:54 Dose: 30 mg Famotidine (Pepcid) 20 mg PO BID [facility] Last Admin: 08/25/18 09:54 Dose: 20 mg Guaifenesin (Mucinex) 1,200 mg PO BID [facility] Last Admin: 08/25/18 09:56 Dose: 1,200 mg Hydrocodone Bit/Homatropine Methylb (Hycodan Syrup) 5 ml PO Q6H PRN PRN PRN Reason: COUGH Last Admin: 08/25/18 05:54 Dose: 5 ml Sodium Chloride () 1,000 mls @ 15 mls/hr IV .Q48H [facility] Last Admin: 08/24/18 10:28 Dose: Not Given Sodium Chloride () 250 mls @ 15 mls/hr IV .[id number] PRN PRN Reason: SALINE FLUSH Methylprednisolone (Solu-Medrol) 40 mg IV Q8 [facility] Last Admin: 08/25/18 05:54 Dose: 40 mg Oxycodone HCl (Oxyir) 5 mg PO Q4H PRN PRN PRN Reason: Moderate Pain (pain scale 4-5) Prochlorperazine Edisylate (Compazine Iv) 10 mg IV Q6H PRN PRN PRN Reason: Nausea/Vomiting Sodium Chloride () 5 - 15 ml IV UD PRN PRN Reason: SALINE FLUSH Last Admin: 08/24/18 14:00 Dose: 10 ml Medical Necessity - Tobacco Use Smoking Status: Current every day smoker Tobacco Use: Cigarettes Assessment/Plan All Active Problems COPD exacerbation (Acute) The patient is a 63 year old F with history of COPD, was scheduled to see Dr. Keith came to ER with shortness of breath cough and wheezing. Patient has progressive worsening of cough for more than a year with a small amount of exertion/climbing stairs but got worse for last 5 days along with cough, wheezing and right upper chest heaviness, worse with coughing. Patient I will also first-time hemoptysis, small amount teased with cough on past 08/19 2018. Patient also has chronic diarrhea since 2013 about 10-12 loose to soft bowel movements every day. Patient had multiple colonoscopy about 4 colonoscopies between 2013?16 with multiple polyps removed, part of which one was cancerous, 2-3 precancerous and rest benign. Patient did follow with Dr. Carr, past [facility] GI and Dr. Gregory in the past. She does not want to follow any GI because her insurance will not pay for further polypectomy. Patient denies obvious GI bleed including melena, hematochezia or Hematemesis She also has loss of weight. Her weight was about 116 lbs 3 years ago and gradually decreased to 70 pounds. 1. COPD exacerbation with respiratory distress: The patient is being admitted on MedSur floor. On bronchodilator, DuoNeb, IV Solu-Medrol, incentive spirometry and chest physiotherapy. Chest x-ray shows chronic features of COPD but no superimposed acute pulmonary process. 2. Acute hypoxic and hypercarbic respiratory failure secondary to COPD exacerbation: Patient pulse ox 98% on 4 L of oxygen. ABG was done. 7. on 4 L of oxygen. Patient was put on BiPAP and she felt better although she could not tolerate for long. Discussed with respiratory therapist. Walking pulse oximetry shows 82% on room air, improved to 93% on 2 L oxygen Chest heaviness pleuritic in nature: EKG is normal sinus rhythm no ST-T changes. Troponin is negative. Patient does not have history of coronary artery disease, no previous stents. 3. Chronic diarrhea with history of cancerous adenomatous polyp: Chronic features. Patient was advised to follow-up with GI/general surgeon as an outpatient but she is not convinced as her insurance does not cover. 4. 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 On nutritional supplement Chronic nicotine dependence: Patient started smoking at the age of 20 with 1 pack per daily and slowly she cut down to 1-1/2 pack lasting 2 to 3 days. She is still smoking. On nicotine patch 5. DVT prophylaxis: Because of her underweight/BMI 13.7, keep Lovenox 30 minutes subcu daily to avoid GI bleed. Stool for occult blood negative Microbiology Past 72 Hours 08/23/18 09:36 Mucosa - Nasopharyngeal Respiratory Panel (PCR) - Final 08/22/18 22:30 Sputum, Expectorated/Coughed Gram Stain - Final 08/23/18 09:36 Mucosa - Nasopharyngeal Influenza Types A,B Direct FA (TUAN) - Final 08/23/18 03:07 Stool Stool Occult Blood (TUAN) - Final Laboratory Results 08/25/18 05:36: WBC 9.4, RBC 4.71, Hgb 14.7, Hct 44.6, MCV 94.7, MCH 31.2, MCHC 33.0, RDW 14.1, RDW Differential 47.0 H, Plt Count 249, MPV 9.0, Immature Gran % (Auto) 0.200, Neut % (Auto) 87.2 H, Lymph % (Auto) 8.1 L, Ogle % (Auto) 4.5, Eos % (Auto) 0.0, Baso % (Auto) 0.0, Absolute Neuts (auto) 8.2 H, Absolute Lymphs (auto) 0.76 L, Total Counted Not Reportable 08/25/18 05:36: Sodium 139, Potassium 4.7, Chloride 101, Carbon Dioxide 33.0 H, Anion Gap 5, BUN 20 H, Creatinine 0.82, Estim Creat Clear Calc 36.11, Est GFR (MDRD) Af Amer 91, Est GFR (MDRD) Non-Af 75, BUN/Creatinine Ratio 24.4 H, Glucose 117 H, Calcium 9.5 08/25/18 12:17: Specimen Type ART, Sample Site R Brachial, pH 7.31 L, Bicarbonate Actual 31.9 H, POC Total CO2 34, Base Excess 6 H, O2 Saturation 94 L, ABG pCO2 63.4 H, ABG pO2 81, Scott Test NA, O2 Delivery Device Nasal Can, Liter Flow 4.0, Blood Gas Notified Whom [facility]OSP , Blood Gas Notified Time 1209 Clinical Impression(s) from Imaging Studies Chest X-Ray 08/22/18 08:04 IMPRESSION: Hyperexpanded lungs, no superimposed acute pulmonary process Active Medications Acetaminophen (Tylenol) 650 mg PO Q6H PRN PRN PRN Reason: Mild Pain (scale 0-3)/T>100.7 Albuterol Sulfate (Ventolin Aerosols) 2.5 mg INHALATION Q2H PRN PRN PRN Reason: SHORTNESS OF BREATH Last Admin: 08/25/18 11:43 Dose: 2.5 mg Albuterol/Ipratropium (Duoneb) 3 ml INHALATION Q4H.RT ULISES Last Admin: 08/25/18 10:43 Dose: 3 ml Bisacodyl (Dulcolax) 10 mg RECTAL DAILY PRN PRN PRN Reason: Constipation Docusate Sodium (Colace) 200 mg PO BID PRN PRN PRN Reason: Constipation Doxycycline Monohydrate (Doxycycline) 100 mg PO BID [facility] Last Admin: 08/25/18 09:54 Dose: 100 mg Enoxaparin Sodium (Lovenox) 30 mg SC DAILY [facility] Last Admin: 08/25/18 09:54 Dose: 30 mg Famotidine (Pepcid) 20 mg PO BID [facility] Last Admin: 08/25/18 09:54 Dose: 20 mg Guaifenesin (Mucinex) 1,200 mg PO BID [facility] Last Admin: 08/25/18 09:56 Dose: 1,200 mg Hydrocodone Bit/Homatropine Methylb (Hycodan Syrup) 5 ml PO Q6H PRN PRN PRN Reason: COUGH Last Admin: 08/25/18 05:54 Dose: 5 ml Sodium Chloride () 1,000 mls @ 15 mls/hr IV .Q48H [facility] Last Admin: 08/24/18 10:28 Dose: Not Given Sodium Chloride () 250 mls @ 15 mls/hr IV .[id number] PRN PRN Reason: SALINE FLUSH Methylprednisolone (Solu-Medrol) 40 mg IV Q8 [facility] Last Admin: 08/25/18 05:54 Dose: 40 mg Oxycodone HCl (Oxyir) 5 mg PO Q4H PRN PRN PRN Reason: Moderate Pain (pain scale 4-5) Prochlorperazine Edisylate (Compazine Iv) 10 mg IV Q6H PRN PRN PRN Reason: Nausea/Vomiting Sodium Chloride () 5 - 15 ml IV UD PRN PRN Reason: SALINE FLUSH Last Admin: 08/24/18 14:00 Dose: 10 ml Code Visit Inpatient E&M: [id number] [facility]
--- NOTE | 2018-08-25 14:43 | PN_ITS ---
Patient Problems: Active and Suspected Problems COPD exacerbation (Acute) Subjective: Patient still feels short of breath even on walking to bathroom. She is very weak. Productive cough and feels rattling in chest. On 2 L of oxygen. Vitals/I&O's: Vital Signs Temp Pulse Resp BP Pulse Ox 98.0 F 101 H 13 155/79 H 99 08/25/18 09:50 08/25/18 13:32 08/25/18 13:32 08/25/18 09:50 08/25/18 13:32 Oxygen Flow Rate (L/min) [ 2 AMBULATION with Oxygen] Oxygen Flow Rate (L/min) [ 0 AMBULATING on Room Air] Oxygen Flow Rate (L/min) [At 0 REST on Room Air] Oxygen Flow Rate (L/min) 3.5 Oxygen Delivery Method Nasal Cannula Weight: 69 lb 15.948 oz Body Mass Index (BMI) 13.6 Intake and Output for Last 24 Hours 08/23/18 08/24/18 08/25/18 23:59 23:59 23:59 Intake Total 950 / 950 1750 / 1750 450 / 450 Balance 950 / 950 1750 / 1750 450 / 450 General: Alert, Oriented x3, Cooperative HEENT: Atraumatic, PERRLA, EOMI, Normocephalic Neck: Supple, No JVD, Negative Carotid Bruits Lungs: Diminished, Rhonchi, Short of Breath Cardiovascular: Regular rate, Regular Rhythm, Normal S1, Normal S2, No murmurs Abdomen: Bowel Sounds Present, Soft, Non Tender, Non-Distended Extremities: No edema, Capillary Refill Less than 3 Seconds Skin: No rashes, No breakdown Musculoskeletal: No Tenderness to Palpation of Joints or Extremities Neurological: Cranial nerves II-XII grossly intact Psych/Mental Status: Normal Affect, Appropriate Microbiology Past 72 Hours 08/23/18 09:36 Mucosa - Nasopharyngeal Respiratory Panel (PCR) - Final 08/22/18 22:30 Sputum, Expectorated/Coughed Gram Stain - Final 08/23/18 09:36 Mucosa - Nasopharyngeal Influenza Types A,B Direct FA (TUAN) - Final 08/23/18 03:07 Stool Stool Occult Blood (TUAN) - Final Laboratory Results 08/25/18 05:36: WBC 9.4, RBC 4.71, Hgb 14.7, Hct 44.6, MCV 94.7, MCH 31.2, MCHC 33.0, RDW 14.1, RDW Differential 47.0 H, Plt Count 249, MPV 9.0, Immature Gran % (Auto) 0.200, Neut % (Auto) 87.2 H, Lymph % (Auto) 8.1 L, Riley % (Auto) 4.5, Eos % (Auto) 0.0, Baso % (Auto) 0.0, Absolute Neuts (auto) 8.2 H, Absolute Lymphs (auto) 0.76 L, Total Counted Not Reportable 08/25/18 05:36: Sodium 139, Potassium 4.7, Chloride 101, Carbon Dioxide 33.0 H, Anion Gap 5, BUN 20 H, Creatinine 0.82, Estim Creat Clear Calc 36.11, Est GFR (MDRD) Af Amer 91, Est GFR (MDRD) Non-Af 75, BUN/Creatinine Ratio 24.4 H, Glucos e 117 H, Calcium 9.5 08/25/18 12:17: Specimen Type ART, Sample Site R Brachial, pH 7.31 L, Bicarbonate Actual 31.9 H, POC Total CO2 34, Base Excess 6 H, O2 Saturation 94 L , ABG pCO2 63.4 H, ABG pO2 81, Scott Test NA, O2 Delivery Device Nasal Can, Liter Flow 4.0, Blood Gas Notified Whom [facility] , Blood Gas Notified Time 1209 Current Medications Acetaminophen (Tylenol) 650 mg PO Q6H PRN PRN PRN Reason: Mild Pain (scale 0-3)/T>100.7 Albuterol Sulfate (Ventolin Aerosols) 2.5 mg INHALATION Q2H PRN PRN PRN Reason: SHORTNESS OF BREATH Last Admin: 08/25/18 11:43 Dose: 2.5 mg Albuterol/Ipratropium (Duoneb) 3 ml INHALATION Q4H.[facility] Last Admin: 08/25/18 10:43 Dose: 3 ml Bisacodyl (Dulcolax) 10 mg RECTAL DAILY PRN PRN PRN Reason: Constipation Docusate Sodium (Colace) 200 mg PO BID PRN PRN PRN Reason: Constipation Doxycycline Monohydrate (Doxycycline) 100 mg PO BID [facility] Last Admin: 08/25/18 09:54 Dose: 100 mg Enoxaparin Sodium (Lovenox) 30 mg SC DAILY [facility] Last Admin: 08/25/18 09:54 Dose: 30 mg Famotidine (Pepcid) 20 mg PO BID [facility] Last Admin: 08/25/18 09:54 Dose: 20 mg Guaifenesin (Mucinex) 1,200 mg PO BID [facility] Last Admin: 08/25/18 09:56 Dose: 1,200 mg Hydrocodone Bit/Homatropine Methylb (Hycodan Syrup) 5 ml PO Q6H PRN PRN PRN Reason: COUGH Last Admin: 08/25/18 05:54 Dose: 5 ml Sodium Chloride () 1,000 mls @ 15 mls/hr IV .Q48H [facility] Last Admin: 08/24/18 10:28 Dose: Not Given Sodium Chloride () 250 mls @ 15 mls/hr IV .[id number] PRN PRN Reason: SALINE FLUSH Methylprednisolone (Solu-Medrol) 40 mg IV Q8 [facility] Last Admin: 08/25/18 05:54 Dose: 40 mg Oxycodone HCl (Oxyir) 5 mg PO Q4H PRN PRN PRN Reason: Moderate Pain (pain scale 4-5) Prochlorperazine Edisylate (Compazine Iv) 10 mg IV Q6H PRN PRN PRN Reason: Nausea/Vomiting Sodium Chloride () 5 - 15 ml IV UD PRN PRN Reason: SALINE FLUSH Last Admin: 08/24/18 14:00 Dose: 10 ml Medical Necessity - Tobacco Use Smoking Status: Current every day smoker Tobacco Use: Cigarettes Assessment/Plan All Active Problems COPD exacerbation (Acute) The patient is a 63 year old F with history of COPD, was scheduled to see Dr. Keith came to ER with shortness of breath cough and wheezing. Patient has progressive worsening of cough for more than a year with a small amount of exertion/climbing stairs but got worse for last 5 days along with cough, wheezing and right upper chest heaviness, worse with coughing. Patient I will also first-time hemoptysis, small amount teased with cough on past 08/19 2018. Patient also has chronic diarrhea since 2013 about 10-12 loose to soft bowel movements every day. Patient had multiple colonoscopy about 4 colonoscopies between 2013?16 with multiple polyps removed, part of which one was cancerous, 2-3 precancerous and rest benign. Patient did follow with Dr. Carr, past [facility] GI and Dr. Gregory in the past. She does not want to follow any GI because her insurance will not pay for further polypectomy. Patient denies obvious GI bleed including melena, hematochezia or Hematemesis She also has loss of weight. Her weight was about 116 lbs 3 years ago and gradually decreased to 70 pounds. 1. COPD exacerbation with respiratory distress: The patient is being admitted on MedSurg floor. On bronchodilator, DuoNeb, IV Solu-Medrol, incentive spirometry and chest physiotherapy. Chest x-ray shows chronic features of COPD but no superimposed acute pulmonary process. 2. Acute hypoxic and hypercarbic respiratory failure secondary to COPD exacerbation: Patient pulse ox 98% on 4 L of oxygen. ABG was done. on 4 L of oxygen. Patient was put on BiPAP and she felt better although she could not tolerate for long. Discussed with respiratory therapist. Walking pulse oximetry shows 82% on room air, improved to 93% on 2 L oxygen Chest heaviness pleuritic in nature: EKG is normal sinus rhythm no ST-T changes. Troponin is negative. Patient does not have history of coronary artery disease, no previous stents. 3. Chronic diarrhea with history of cancerous adenomatous polyp: Chronic f eatures. Patient was advised to follow-up with GI/general surgeon as an outpatient but she is not convinced as her insurance does not cover. 4. 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 On nutritional supplement Chronic nicotine dependence: Patient started smoking at the age of 20 with 1 pack per daily and slowly she cut down to 1-1/2 pack lasting 2 to 3 days. She is still smoking. On nicotine patch 5. DVT prophylaxis: Because of her underweight/BMI 13.7, keep Lovenox 30 minutes subcu daily to avoid GI bleed. Stool for occult blood negative Microbiology Past 72 Hours 08/23/18 09:36 Mucosa - Nasopharyngeal Respiratory Panel (PCR) - Final 08/22/18 22:30 Sputum, Expectorated/Coughed Gram Stain - Final 08/23/18 09:36 Mucosa - Nasopharyngeal Influenza Types A,B Direct FA (TUAN) - Final 08/23/18 03:07 Stool Stool Occult Blood (TUAN) - Final Laboratory Results 08/25/18 05:36: WBC 9.4, RBC 4.71, Hgb 14.7, Hct 44.6, MCV 94.7, MCH 31.2, MCHC 33.0, RDW 14.1, RDW Differential 47.0 H, Plt Count 249, MPV 9.0, Immature Gran % (Auto) 0.200, Neut % (Auto) 87.2 H, Lymph % (Auto) 8.1 L, Riley % (Auto) 4.5, Eos % (Auto) 0.0, Baso % (Auto) 0.0, Absolute Neuts (auto) 8.2 H, Absolute Lymphs (auto) 0.76 L, Total Counted Not Reportable 08/25/18 05:36: Sodium 139, Potassium 4.7, Chloride 101, Carbon Dioxide 33.0 H, Anion Gap 5, BUN 20 H, Creatinine 0.82, Estim Creat Clear Calc 36.11, Est GFR (MDRD) Af Amer 91, Est GFR (MDRD) Non-Af 75, BUN/Creatinine Ratio 24.4 H, Glucose 117 H, Calcium 9.5 08/25/18 12:17: Specimen Type ART, Sample Site R Brachial, pH 7.31 L, Bicarbonate Actual 31.9 H, POC Total CO2 34, Base Excess 6 H, O2 Saturation 94 L , ABG pCO2 63.4 H, ABG pO2 81, Scott Test NA, O2 Delivery Device Nasal Can, Liter Flow 4.0, Blood Gas Notified Whom [facility]OS[facility] MD, Blood Gas Notified Time 1209 Clinical Impression(s) from Imaging Studies Chest X-Ray 08/22/18 08:04 IMPRESSION: Hyperexpanded lungs, no superimposed acute pulmonary process Active Medications Acetaminophen (Tylenol) 650 mg PO Q6H PRN PRN PRN Reason: Mild Pain (scale 0-3)/T>100.7 Albuterol Sulfate (Ventolin Aerosols) 2.5 mg INHALATION Q2H PRN PRN PRN Reason: SHORTNESS OF BREATH Last Admin: 08/25/18 11:43 Dose: 2.5 mg Albuterol/Ipratropium (Duoneb) 3 ml INHALATION Q4H.RT ULISES Last Admin: 08/25/18 10:43 Dose: 3 ml Bisacodyl (Dulcolax) 10 mg RECTAL DAILY PRN PRN PRN Reason: Constipation Docusate Sodium (Colace) 200 mg PO BID PRN PRN PRN Reason: Constipation Doxycycline Monohydrate (Doxycycline) 100 mg PO BID [facility] Last Admin: 08/25/18 09:54 Dose: 100 mg Enoxaparin Sodium (Lovenox) 30 mg SC DAILY [facility] Last Admin: 08/25/18 09:54 Dose: 30 mg Famotidine (Pepcid) 20 mg PO BID [facility] Last Admin: 08/25/18 09:54 Dose: 20 mg Guaifenesin (Mucinex) 1,200 mg PO BID [facility] Last Admin: 08/25/18 09:56 Dose: 1,200 mg Hydrocodone Bit/Homatropine Methylb (Hycodan Syrup) 5 ml PO Q6H PRN PRN PRN Reason: COUGH Last Admin: 08/25/18 05:54 Dose: 5 ml Sodium Chloride () 1,000 mls @ 15 mls/hr IV .Q48H [facility] Last Admin: 08/24/18 10:28 Dose: Not Given Sodium Chloride () 250 mls @ 15 mls/hr IV .[id number] PRN PRN Reason: SALINE FLUSH Methylprednisolone (Solu-Medrol) 40 mg IV Q8 [facility] Last Admin: 08/25/18 05:54 Dose: 40 mg Oxycodone HCl (Oxyir) 5 mg PO Q4H PRN PRN PRN Reason: Moderate Pain (pain scale 4-5) Prochlorperazine Edisylate (Compazine Iv) 10 mg IV Q6H PRN PRN PRN Reason: Nausea/Vomiting Sodium Chloride () 5 - 15 ml IV UD PRN PRN Reason: SALINE FLUSH Last Admin: 08/24/18 14:00 Dose: 10 ml Code Visit Inpatient E&M: [id number] [place] [id number]
--- NOTE | 2018-08-25 14:56 | CPS ---
Decreased FiO2 on BiPAP to 30% at this time.
[2018-08-25] MEDS: 0.9% NaCl Peripheral Flush Adult/Peds IV ×2 (15:39→21:55)
[2018-08-26] VITALS (11 sets, daily range): BP systolic 137–151; BP diastolic 90–102; PULSE 78–101; RESP 12–20; TEMP 36.4–37.3; O2SAT 72–98
[2018-08-26] MEDS: Ipratropium/Albuterol Sulfate 3 ML AMPUL.NEB INHALATION ×3 (03:06→10:53)
[2018-08-26] MEDS: 0.9% NaCl Peripheral Flush Adult/Peds IV (06:03)
--- NOTE | 2018-08-26 09:40 | DS.PCM_ITS ---
Discharge Date and Diagnosis - Problem List Patient Problems: Active and Suspected Problems COPD exacerbation (Acute) Date of Admission: 08/22/18 Date of Discharge: 08/26/18 - Primary Discharge Diagnosis Active and Suspected Problems COPD exacerbation (Acute) - Secondary Discharge Diagnosis Chronic Problems Chronic diarrhea (Chronic) Cancer adenomatous polyp (Chronic) Cachexia (Chronic) Hospital Course and Treatment Summary of Care Provided: [] The patient is a 63 year old F with history of COPD, was scheduled to see Dr. Keith came to ER with shortness of breath cough and wheezing. Patient has progressive worsening of cough for more than a year with a small amount of exertion/climbing stairs but got worse for last 5 days along with cough, wheezing and right upper chest heaviness, worse with coughing. Patient I will also first-time hemoptysis, small amount teased with cough on past 08/19 2018. Patient also has chronic diarrhea since 2012 about 10-12 loose to soft bowel movements every day. Patient had multiple colonoscopy about 4 colonoscopies between 2013?16 with multiple polyps removed, part of which one was cancerous, 2-3 precancerous and rest benign. Patient did follow with Dr. Carr, past [facility] and Dr. Gregory in the past. She does not want to follow any GI because her insurance will not pay for further polypectomy. Patient denies obvious GI bleed including melena, hematochezia or Hematemesis She also has loss of weight. Her weight was about 116 lbs 3 years ago and gradually decreased to 70 pounds. 1. COPD exacerbation with respiratory distress: The patient is being admitted on [facility] floor. On bronchodilator, DuoNeb, IV Solu-Medrol, incentive spirometry and chest physiotherapy. Chest x-ray shows chronic features of COPD but no superimposed acute pulmonary process. 2. Acute hypoxic and hypercarbic respiratory failure secondary to COPD exacerbation: Patient pulse ox 98% on 4 L of oxygen. ABG was done. 7.63/81 on 4 L of oxygen. Patient was put on BiPAP and she felt better although she could not tolerate for long. Discussed with respiratory therapist. Walking pulse oximetry was done. While ambulating, on room air, pulse ox 92%: 92% on 2 L of oxygen. At rest on room air 88%. Patient is ambulatory in home and in the community and requires home oxygen with portability. Chest heaviness pleuritic in nature: EKG is normal sinus rhythm no ST-T changes. Troponin is negative. Patient does not have history of coronary artery disease, no previous stents. 3. Chronic diarrhea with history of cancerous adenomatous polyp: Chronic features. Patient was advised to follow-up with GI/general surgeon as an outpatient but she is not convinced as her insurance does not cover. 4. 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 On nutritional supplement Chronic nicotine dependence: Patient started smoking at the age of 20 with 1 pack per daily and slowly she cut down to 1-1/2 pack lasting 2 to 3 days. She is still smoking. On nicotine patch 5. DVT prophylaxis: Because of her underweight/BMI 13.7, keep Lovenox 30 minutes subcu daily to avoid GI bleed. Stool for occult blood negative Discharge medication reconciliation done. Discharge follow-up instructions completed. Discharge process discussed with the patient and all questions were answered to patient's satisfaction. Patient has Anoro inhaler and albuterol at home. Patient is allergic to prednisone and gets restlessness and, anxiety symptoms with that. Therefore patient is being discharged on 2 more days of doxycycline to complete a total of 7 days Mucinex. Follow-up with your Dr. Keith and advised to call his office to make early appointment. Total time spent, exact 35 minutes on discharge meds reconciliation, examination, review of imaging and blood test and discussion with the patient on follow-up instructions. Patient Problems: Active and Suspected Problems COPD exacerbation (Acute) Subjective: Patient feels better. Walking pulse oximetry was done. Ambulating, on room air, pulse ox 92% me: 92% on 2 L of oxygen. At rest on room air 88%. Patient was on BiPAP yesterday but could not tolerate for long. Objective: General: Alert, Oriented x3, Cooperative HEENT: Atraumatic, PERRLA, EOMI, Normocephalic Neck: Supple, No JVD, Negative Carotid Bruits Lungs: Shortness of breath has improved. Bilateral rhonchi present. No tachypnea. 2-3 Liter of oxygen. Cardiovascular: Regular rate, Regular Rhythm, Normal S1, Normal S2, No murmurs Abdomen: Bowel Sounds Present, Soft, Non Tender, Non-Distended Extremities: No edema, Capillary Refill Less than 3 Seconds Skin: No rashes, No breakdown Musculoskeletal: No Tenderness to Palpation of Joints or Extremities Neurological: Cranial nerves II-XII grossly intact Psych/Mental Status: Normal Affect, Appropriate - Physical Exam Vital Signs Temp Pulse Resp BP Pulse Ox 97.6 F L 89 18 137/90 H 96 08/26/18 02:53 08/26/18 07:50 08/26/18 06:55 08/26/18 02:53 08/26/18 06:55 Oxygen Flow Rate (L/min) [ 2 AMBULATION with Oxygen] Oxygen Flow Rate (L/min) [ 0 AMBULATING on Room Air] Oxygen Flow Rate (L/min) [At 0 REST on Room Air] Oxygen Flow Rate (L/min) 3 Oxygen Delivery Method Nasal Cannula Weight: 69 lb 15.948 oz Body Mass Index (BMI) 13.6 Intake and Output for Last 24 Hours 08/24/18 08/25/18 08/26/18 23:59 23:59 23:59 Intake Total 1750 / 1750 800 / 800 200 / 200 Balance 1750 / 1750 800 / 800 200 / 200 Microbiology Past 72 Hours 08/23/18 09:36 Respiratory Panel (PCR) - Final Mucosa - Nasopharyngeal 08/22/18 22:30 Gram Stain - Final Sputum, Expectorated/Coughed 08/23/18 09:36 Influenza Types A,B Direct FA (TUAN) - Final Mucosa - Nasopharyngeal Laboratory Tests Past 24 Hrs 08/25/18 12:17 Specimen Type ART Sample Site R Brachial pH 7.31 L Bicarbonate Actual 31.9 H POC Total CO2 34 Base Excess 6 H O2 Saturation 94 L ABG pCO2 63.4 H ABG pO2 81 Scott Test NA O2 Delivery Device Nasal Can Liter Flow 4.0 Blood Gas Notified Whom [facility] Blood Gas Notified Time 1209 Discharge Activity: May Not Drive Call your doctor if you observe: Fever of 101 or Higher, Inability to have a bowel movement, Shortness of breath, Swelling in the ankles, Chest pain, Increased palpitations (irregular heartbeat) Home Medications: Medications to take at Discharge Albuterol Inhaler [Ventolin Hfa] 1 - 2 puff INHALATION Q4H PRN PRN 08/22/18 Duloxetine HCl 60 mg PO DAILY 08/22/18 Melatonin 10 mg PO QHS PRN 08/22/18 Doxycycline 100 mg PO BID #5 capsule 08/26/18 Guaifenesin [Mucinex] 1,200 mg PO BID #14 tablet 08/26/18 Following Prescrptions Were Given to Patient: Doxycycline 100 mg PO BID #5 capsule Guaifenesin [Mucinex] 1,200 mg PO BID #14 tablet Primary Care Physician: Andrea Dalton DO [Primary Care Provider] - Please follow up with your Primary Care Physician in: in 2 week Please Follow Up With: Jacek Keith MD When: in September 2018, try to see early Medical Necessity - Tobacco Use Smoking Status: Current every day smoker Tobacco Use: Cigarettes Meaningful Use Info Meaningful Use Diagnoses (Choose all that apply): None applicable Code Visit Inpatient E&M: 63092 Disch Hosp
--- NOTE | 2018-08-26 09:40 | DCINST_ITS ---
- Discharge Diagnoses Current Active Problems: Current Active and Chronic Problems COPD exacerbation (Acute) Chronic diarrhea (Chronic) Cancer adenomatous polyp (Chronic) Cachexia (Chronic) You will use the following diet at home:: Regular Discharge Activity: May Not Drive Call your doctor if you observe: Fever of 101 or Higher, Inability to have a bowel movement, Shortness of breath, Swelling in the ankles, Chest pain, Increased palpitations (irregular heartbeat) Allergies/Adverse Reactions: Allergies azithromycin Adverse Reaction (Verified 08/22/18 07:51) Hives cucumber Adverse Reaction (Verified 08/22/18 11:20) Swelling loratadine [From Claritin] Adverse Reaction (Verified 08/22/18 07:51) Itching prednisone Adverse Reaction (Verified 08/22/18 11:19) Other doesnt sleep. peaches Adverse Reaction (Uncoded 08/22/18 11:20) Swelling Medications to take at Discharge Albuterol Inhaler [Ventolin Hfa] 1 - 2 puff INHALATION Q4H PRN PRN 08/22/18 Duloxetine HCl 60 mg PO DAILY 08/22/18 Melatonin 10 mg PO QHS PRN 08/22/18 Doxycycline 100 mg PO BID #5 capsule 08/26/18 Guaifenesin [Mucinex] 1,200 mg PO BID #14 tablet 08/26/18 The following prescriptions were given: Doxycycline 100 mg PO BID #5 capsule Guaifenesin [Mucinex] 1,200 mg PO BID #14 tablet Primary Care Physician: Andrea Dalton DO [Primary Care Provider] - Please follow up with your Primary Care Physician in: in 2 week Test Results: Test results from this visit will be discussed in further detail at your follow- up appointment, if applicable. Please Follow Up With: Jacek Keith MD When: in September 2018, try to see early
[2018-08-26] MEDS: Doxycycline 100 MG CAPSULE PO (09:56)
[2018-08-26] MEDS: Famotidine 20 MG Tablet PO (09:56)
[2018-08-26] MEDS: guaiFENesin 1,200 MG Tablet 1200 MG PO (09:56)
--- NOTE | 2018-08-26 11:27 | CASEMGMT ---
RN YESSICA updated that patient qualifies for home oxygen, requesting liquid oxygen due to electrical issues. Script received and referral sent to [facility] and requested portability be sent to hospital prior to discharge.
== END 2018-08-26 14:10 | disposition home or self-care (01) | DRG 190 ==
LOC: ED 08:15 → MS3 10:29
PROVIDERS: Student in an Organized Health Care Education/Training Program; Admitting Provider Internal Medicine; Emergency Provider Emergency Medicine; Family Provider Family Medicine; PCP Family Medicine; Referring Provider Internal Medicine; Visit Provider Internal Medicine
DX: J44.1 Chronic obstructive pulmonary disease with (acute) exacerbation (principal); J96.02 Acute respiratory failure with hypercapnia; J96.01 Acute respiratory failure with hypoxia; R64 Cachexia; Z68.1 Body mass index [BMI] 19.9 or less, adult; E46 Unspecified protein-calorie malnutrition; F17.210 Nicotine dependence, cigarettes, uncomplicated; Z86.010 Personal history of colon polyps; K52.9 Noninfective gastroenteritis and colitis, unspecified
CPT/HCPCS: 36415; 36600; 71045; 80048; 82274; 82803; 82962; 84484; 85025; 87070; 87205; 87633; 87804; 93005; 94002; 94003; 94640; 94667; 94668; 97802; 99283; 99406; J7030; A4216

== ENCOUNTER 2018-08-26 19:56 | Inpatient (IN) | payer MEDICARE, SELFPAY ==
[2018-08-22 10:48] VITALS: BMI 13.6
[2018-08-26 19:57] VITALS: PULSE 93; RESP 20; TEMP 36.7; O2SAT 97; BMI 14.8
[2018-08-26 20:02] VITALS: O2SAT 98
--- NOTE | 2018-08-26 20:02 | EKG12_ITS ---
Test Reason : SOB Blood Pressure : / mmHG Vent. Rate : 095 BPM Atrial Rate : 095 BPM P-R Int : 106 ms QRS Dur : 066 ms QT Int : 334 ms P-R-T Axes : 084 091 020 degrees QTc Int : 419 ms Sinus rhythm with short MO Right atrial enlargement Rightward axis Pulmonary disease pattern Abnormal ECG Confirmed by EMETERIO STEWART ([id number]), acquisitions editor MIGUEL MARTINEZ ([id number] on 09/01/2018 2:15:03 PM Referred By: DANICA Confirmed By:CYNDI STEWART
--- NOTE | 2018-08-26 20:02 | RAD_ITS ---
STUDY: X-RAY CHEST REASON FOR EXAM: Female, 63 years old. Shortness of breath for one half months. Cough. TECHNIQUE: Single AP portable view of the chest. COMPARISON: None. FINDINGS: There is marked hyperinflation of the lungs with coarsening of the interstitial markings at the lung bases. There is no pneumothorax. There is no new mass or infiltrate. There is no demonstrated pleural abnormality. Normal size heart. Normal mediastinum and carlton. Normal visualized pulmonary arteries. Normal visualized aortic arch and descending thoracic aorta. No visualized osseous changes. There is no demonstrated abnormality of the visualized soft tissue structures of the upper abdomen. RAD/Chest 1 View (Portable) IMPRESSION: Markedly hyperexpanded lungs without acute cardiopulmonary disease or interval change. Electronically Signed: Ad Francisco DO at 20:32 EDT Tel [phone], Service support ,
[2018-08-26 20:04] VITALS: BP 174/95
[2018-08-26 20:32] VITALS: PULSE 100; RESP 20
[2018-08-26] MEDS: Ipratropium/Albuterol Sulfate 3 ML AMPUL.NEB INHALATION (20:32)
[2018-08-26 20:34] LABS: Absolute Lymphocyte Count 2.53 X10^3/ul (0.83-4.51); Absolute Neutrophil Count 6.1 X10^3/uL (2.0-7.7); Eosinophil# 0.07 X10^3/uL; Eosinophils% 0.7 % (0-5); Hemoglobin 15.1 g/dl (12.0-15.0); Lymphocyte # 2.53 X10^3/ul (4.0); Lymphocyte % 25.5 % (19-41); Mean Corp Hgb Conc 33.6 g/gl (32-36); Mean Corpuscular Hgb 31.3 pg (27.0-32.0); Mean Corpuscular Volume 93.2 fL (81-99); Mean Platelet Vol. 9.2 fl (6.2-12.0); Monocyte# 1.19 X10^3/uL; Neutrophil # 6.12 X10^3/uL (2.7-7.7); Neutrophil % 61.7 % (47-70); POSITIVE COUNT NO; POSITIVE DIFFERENTIAL NO; POSITIVE MORPHOLOGY NO; Platelet Count 246 K/mm3 (150-450); RBC Distribution Width CV 13.7 % (11.6-14.6); RBC Distribution Width SD 46.8 fl (35.1-43.9); Red Blood Count 4.83 M/mm3 (4.2-5.4); White Blood Count 9.9 K/mm3 (4.4-11.0)
[2018-08-26 20:47] LABS: Anion Gap 5 (5-15); BUN 21 mg/dL (7-18); BUN/Creat Ratio 22.5 RATIO (10-20); Calcium,Total 9.5 mg/dL (8.5-10.1); Chloride 98 mmol/L (98-107); Creatinine, Serum 0.93 mg/dL (0.55-1.02); EST Glomerular Filtration Rate 65 mL/min (>60); Est Glom Filt Rate - Afr Amer 78 mL/min (>60); Glucose 103 mg/dL (74-106); Sodium Level 137 mmol/L (136-145)
--- NOTE | 2018-08-26 20:54 | ED.DCSUM_ITS ---
- ER Visit Summary Date of Service: 08/26/18 Chief Complaint: [Shortness of breath] History of Present Illness: The patient is a 63 F [presents to the emergency department complaint of shortness of breath started about an hour and a half ago. Patient states she was just discharged from the hospital today after being admitted for approximately 5 days for COPD exacerbation. Patient was sent home on doxycycline. Patient denies any chest pain. He does complain of a productive cough at times bringing up some thick yellow sputum. Patient had low-grade temps at home into the 99 range and subjectively has felt hot. She has a history of cachexia, depression, anxiety, and colon polyps. She denies recent travel or surgery. She denies any hemoptysis.] Patient states that she quit smoking 6 days ago. Physical Examination: [HEENT-PERRLA, EOMI. Cranial nerves II through XII anup sly intact. TMs clear. Mucous membranes moist. No adenopathy. Cardiovascular-regular rate and rhythm without murmur or ectopy Lungs-diminished breath sounds bilaterally. Patient has expiratory wheezes throughout. Patient is tachypneic. Mild retractions. No accessory muscle use. Abdomen-normoactive bowel sounds, soft, nontender, no rebound or rigidity, no peritoneal signs. Extremities-intact ?4, normal range of motion, normal pulses, atraumatic] Test Results: [EKG obtained arrival shows sinus rhythm with a ventricular rate of 95 bpm. CBC with additional cannot 9.9, hemoglobin 15, hematocrit 45, platelets 246. Chemistries unremarkable. Plan is less than 0.015. Chest x-ray showed hyperinflation.] Emergency Department Course and Treatment: [Patient was given a DuoNeb aerosol.] Treatment Plan: [Patient continues to complain of dyspnea will be admitted for further management.] Disposition: [Admit] Impression: [COPD exacerbation] This note was generated with [employer] dictation software. It may contain incorrect words, spelling, and punctuation that were not noted in review of the chart prior to signing ED Disposition - Plan for ED Patient: Referrals: Andrea Dalton DO [Primary Care Provider] -
--- NOTE | 2018-08-26 21:02 | HP.PCM_ITS ---
Problem List (1) COPD exacerbation Status: Acute (2) Chronic diarrhea Status: Chronic (3) Cancer adenomatous polyp Status: Chronic (4) Cachexia Status: Chronic History of Present Illness Date of Admission: 08/26/18 Chief Complaint: shortness of breath The patient is a 63 year old F with a significant history of COPD; tobacco ab use; cachexia; chronic diarrhea with a polypectomy of multiple colonic polyps who was admitted on 08/22/2018 and discharged on 08/26/2018 with acute exacerbation of COPD returning on on same day of discharge for a persistence cough. Her cough is productive for thick yellow sputum. Associated with her symptoms is shortness of breath. Patient reported that at home on 2L her oxygen saturation was in the 90s. However from review of records it was reported that on 2 L patient's oxygen saturation was in the 80s. Further patient had wheezing. She reports taking her rescue inhaler multiple times while at home. Past Medical History Past Medical History (Chronic Problems): Chronic Problems Chronic diarrhea (Chronic) Cancer adenomatous polyp (Chronic) Cachexia (Chronic) Allergies azithromycin Allergy (Verified 08/26/18 20:15) Hives cucumber Allergy (Verified 08/26/18 20:15) Swelling loratadine [From Claritin] Adverse Reaction (Verified 08/26/18 20:01) Itching prednisone Adverse Reaction (Verified 08/26/18 20:01) Other doesnt sleep. peaches Allergy (Uncoded 08/26/18 20:15) Swelling Home Medications: Ambulatory Orders Medication Instructions Recorded Albuterol Inhaler [Ventolin Hfa] 1 - 2 puff INHALATION Q4H PRN PRN 08/22/18 Duloxetine HCl 60 mg PO DAILY 08/22/18 Melatonin 10 mg PO QHS PRN 08/22/18 Doxycycline 100 mg PO BID 08/26/18 Guaifenesin [Mucinex] 1,200 mg PO BID 08/26/18 Surgical History: appendectomy, - - Cyst removed from ovaries. Multiple polypectomy. Lives: With Family Smoking Status: Former smoker - Reportedly he quit smoking cigar with 5 days ago. Alcohol: None - *Family History Paternal History Items: Diabetes, Heart Disease, Hypertension, Renal Disease Maternal History Items: Diabetes, Hypertension, Renal Disease Review of Systems Constitutional: Denies: Chills, Fever, Weight Change HEENT: Denies: Head Aches, Sinus Congestion, Sinus Drainage Cardiovascular: Denies: Chest Pain, Palpitations Respiratory: Reports: Cough, Shortness of Breath, Sputum production, Wheezing Gastrointestinal: Denies: Abdominal Pain, Nausea, Vomiting Genitourinary: Denies: Dysuria Musculoskeletal: Denies: Joint Pain, Joint Tenderness Skin: Denies: Rash, Wounds Neurological: Denies: Numbness, Tingling, Focal weakness Psychiatric: Denies: Anxiety, Depression, Homicidal Ideations, Suicidal Ideations Hematologic/ Lymphatic: Denies: Easy Bruising, Easy Bleeding VTE Information - Inpt Only VTE Present on Admission: No VTE Mechan Device Prophylaxis: None VTE Pharm Prophylaxis ordered?: Yes - Physical Exam General: Alert, Oriented x3, Cooperative, - - Patient with profuse cough while being examined. HEENT: Atraumatic, PERRLA, EOMI, Normocephalic Neck: Supple, No JVD, Negative Carotid Bruits Lungs: Rhonchi, Tachypneic, Wheezes Cardiovascular: Normal S1, Normal S2, No murmurs, Tachycardic Abdomen: Bowel Sounds Present, Soft, Non Tender Extremities: No edema, Capillary Refill Less than 3 Seconds Skin: No rashes, No breakdown Musculoskeletal: No Tenderness to Palpation of Joints or Extremities, Cachexia Neurological: Cranial nerves II-XII grossly intact Psych/Mental Status: Normal Affect, Appropriate Vital Signs Temp Pulse Resp BP Pulse Ox 98.1 F 100 20 H 174/95 H 98 08/26/18 19:57 08/26/18 20:32 08/26/18 20:32 08/26/18 20:04 08/26/18 20:02 Oxygen Flow Rate (L/min) 2 Oxygen Delivery Method Nasal Cannula Weight: 34.4 kg Body Mass Index (BMI) 14.8 Laboratory Tests Past 24 Hrs 08/26/18 08/26/18 20:25 20:25 WBC 9.9 RBC 4.83 Hgb 15.1 H Hct 45.0 MCV 93.2 MCH 31.3 MCHC 33.6 RDW 13.7 RDW Differential 46.8 H Plt Count 246 MPV 9.2 Immature Gran % (Auto) 0.100 Neut % (Auto) 61.7 Lymph % (Auto) 25.5 [place] % (Auto) 12.0 H Eos % (Auto) 0.7 Baso % (Auto) 0.0 Absolute Neuts (auto) 6.1 Absolute Lymphs (auto) 2.53 Total Counted Not Reportable Sodium 137 Potassium 4.0 Chloride 98 Carbon Dioxide 34.0 H Anion Gap 5 BUN 21 H Creatinine 0.93 Estim Creat Clear Calc 34.50 Est GFR (MDRD) Af Amer 78 Est GFR (MDRD) Non-Af 65 BUN/Creatinine Ratio 22.5 H Glucose 103 Calcium 9.5 Troponin I < 0.015 Assessment/Plan All Active Problems COPD exacerbation (Acute) The patient is a 63 year old F with a significant history of COPD; cachexia; chronic diarrhea with a polypectomy of multiple colonic polyps who was admitted on 08/22/2018 and discharged on 08/26/2018 with acute exacerbation of COPD returning on on same day of discharge for a persistence of productive cough and with shortness of breath wheezing and reported hypoxia assistance with unresolved acute exacerbation of COPD. Acute exacerbation of COPD Discussed emergency department doctor will give patient Solu-Medrol 40 mg IV in the emergency department. Patient reported that she is unable to tolerate oral prednisone because of insomnia but she does well with IV steroids. We will continue Solu-Medrol 40 mg every 8 hours. Scheduled to any pain. Albuterol ordered. Oxygen saturation supplementation to keep oxygen saturation above 92%. Mucinex continued We will add prn Tessalon perles. Patient was discharged on doxycycline. We will continue doxycycline. Respiratory pathogen panel on 08/23/2018 was unremarkable. Influenza screen on 08/23/2018 was unremarkable. Gram stain on 08/22/2018 was unremarkable. Final respiratory culture is pending. Severe protein calorie malnutrition Patient with BMI of 14.8 Nutrition consult Ensure Enlive ordered. Tobacco abuse Patient reported quitting about 5 days ago that was when she was recently admitted,that is her immediate prior admission She reported she is currently smoking about 10-12 sticks of cigarettes per day; haven't cut down her smoking. Shared decision to prescribe nicotine patch. Nicotine patch 14 mg daily ordered. Depression Duloxetine continued Insomnia Melatonin continued DVT prophylaxis Subcutaneous Lovenox ordered Code Visit Inpatient E&M: 33044 Init Hosp L3
[2018-08-26 21:20] VITALS: BP 124/81; PULSE 97; RESP 17; O2SAT 96
[2018-08-26 22:05] VITALS: BMI 14.0
[2018-08-26 22:23] VITALS: BP 135/81; PULSE 96; RESP 20; TEMP 36.7; O2SAT 97
[2018-08-26] MEDS: 0.9% Normal Saline 1,000 ML 100 ML IV (22:25)
[2018-08-26] MEDS: guaiFENesin 1,200 MG Tablet 1200 MG PO (23:08)
[2018-08-26] MEDS: Doxycycline 100 MG CAPSULE PO (23:09)
[2018-08-27] VITALS (10 sets, daily range): BP systolic 113–144; BP diastolic 71–97; PULSE 85–105; RESP 18–22; TEMP 36.3–36.8; O2SAT 90–98
[2018-08-27] MEDS: Ipratropium/Albuterol Sulfate 3 ML AMPUL.NEB INHALATION ×6 (03:10→22:53)
[2018-08-27] MEDS: 0.9% NaCl Peripheral Flush Adult/Peds IV ×2 (05:28→13:24)
--- NOTE | 2018-08-27 09:09 | PCM.PN.HOSP ---
Subjective: Patient was seen and examined. Patient complains of wheezing, sputum productive of yellowish sputum. Denies any fever or chills or chest pain or shortness of breath. She was discharged yesterday and came back again on the same day with persistent cough and wheeziness. She was discharged on oxygen and had received oxygen at home. Vitals/I&O's: Vital Signs Temp Pulse Resp BP Pulse Ox 98.3 F 90 20 H 113/72 94 08/27/18 03:24 08/27/18 03:24 08/27/18 03:24 08/27/18 03:24 08/27/18 03:24 Oxygen Flow Rate (L/min) 2 Oxygen Delivery Method Nasal Cannula Weight: 32.6 kg Body Mass Index (BMI) 14.0 Intake and Output for Last 24 Hours 08/25/18 08/26/18 08/27/18 23:59 23:59 23:59 Intake Total 460 / 460 Balance 460 / 460 General: Alert, Oriented x3, Cooperative, No apparent distress, - - Cachectic, comfortable, on 2 L of oxygen HEENT: Atraumatic, PERRLA, EOMI, Normocephalic Oral: Moist Mucosa Neck: Supple Lungs: Diminished, Wheezes Cardiovascular: Regular rate, Regular Rhythm, Normal S1, Normal S2, No murmurs Abdomen: Bowel Sounds Present, Soft, Non Tender, Non-Distended, No Hepato-splenomegaly Extremities: No edema Skin: No rashes Musculoskeletal: No Tenderness to Palpation of Joints or Extremities Lymphatic: No Cervical, Supraclavicular, or Inguinal Adenopathy Neurological: Cranial nerves II-XII grossly intact, Neuro grossly intact Psych/Mental Status: Normal Affect, Appropriate Laboratory Results 08/26/18 20:25: WBC 9.9, RBC 4.83, Hgb 15.1 H, Hct 45.0, MCV 93.2, MCH 31.3, MCHC 33.6, RDW 13.7, RDW Differential 46.8 H, Plt Count 246, MPV 9.2, Immature Gran % (Auto) 0.100, Neut % (Auto) 61.7, Lymph % (Auto) 25.5, [place] % (Auto) 12.0 H, Eos % (Auto) 0.7, Baso % (Auto) 0.0, Absolute Neuts (auto) 6.1, Absolute Lymphs (auto) 2.53, Total Counted Not Reportable 08/26/18 20:25: Sodium 137, Potassium 4.0, Chloride 98, Carbon Dioxide 34.0 H, Anion Gap 5, BUN 21 H, Creatinine 0.93, Estim Creat Clear Calc 34.50, Est GFR (MDRD) Af Amer 78, Est GFR (MDRD) Non-Af 65, BUN/Creatinine Ratio 22.5 H, Glucose 103, Calcium 9.5, Troponin I < 0.015 Current Medications Acetaminophen (Tylenol) 650 mg PO Q6H PRN PRN PRN Reason: Mild Pain (1-3)/Temp > 100.7 F Albuterol Sulfate (Ventolin Aerosols) 2.5 mg INHALATION Q2H PRN PRN PRN Reason: Shortness of Breath/Wheezing Albuterol/Ipratropium (Duoneb) 3 ml INHALATION Q4H.RT [facility] Last Admin: 08/27/18 07:00 Dose: 3 ml Benzonatate (Tessalon Perle) 100 mg PO 4X/DAY PRN PRN PRN Reason: COUGH Dextrose (D50w Syringe) 0 gm IV X1 PRN; Protocol PRN Reason: Hypoglycemia Doxycycline Monohydrate (Doxycycline) 100 mg PO BID [facility] Last Admin: 08/26/18 23:09 Dose: 100 mg Duloxetine HCl (Cymbalta) 60 mg PO DAILY [facility] Enoxaparin Sodium (Lovenox) 40 mg SC DAILY@1000 [facility] Glucagon () 1 mg IM .X1 PRN PRN Reason: Hypoglycemia Guaifenesin (Mucinex) 1,200 mg PO BID [facility] Last Admin: 08/26/18 23:08 Dose: 1,200 mg Melatonin (Melatonin) 10 mg PO QHS PRN PRN Reason: INSOMNIA Methylprednisolone (Solu-Medrol) 40 mg IV Q8 [facility] Last Admin: 08/27/18 05:28 Dose: 40 mg Nicotine (Nicoderm Cq (Pbkc)) 14 mg TRANSDERM. DAILY [facility] Last Admin: 08/26/18 23:09 Dose: 14 mg Nutritional Formula (Lactose Free) (Ensure Enlive) 120 ml PO 4X/DAY [facility] Last Admin: 08/26/18 23:08 Dose: Not Given Ondansetron HCl (Zofran) 4 mg IV Q8H PRN PRN PRN Reason: Nausea Sodium Chloride () 5 - 15 ml IV UD PRN PRN Reason: SALINE FLUSH Last Admin: 08/27/18 05:28 Dose: 10 ml Medical Necessity - Tobacco Use Smoking Status: Former smoker Assessment/Plan All Active Problems COPD exacerbation (Acute) 63-year-old female with past medical history of COPD, recent nicotine dependence, cachexia, chronic diarrhea who was recently admitted on discharged on 08/26/18 who comes in with same presentation of acute COPD exacerbation. 1. Acute exacerbation of COPD, with hypoxia, on 2 L home oxygen, continue on IV Solu-Medrol, breathing treatments, doxycycline,\ We will reevaluate tomorrow morning and possibly discharge home. 2. Severe protein calorie malnutrition, BMI of 14.8, bagman/woman consulted 3. Recently quit nicotine dependence, 4. Depression, on duloxetine 5. DVT PPx- Lovenox Code Visit Inpatient E&M: 71941 Subs Hosp L2
[2018-08-27] MEDS: DULoxetine Hcl 60 MG Capsule PO (10:02)
[2018-08-27] MEDS: guaiFENesin 1,200 MG Tablet 1200 MG PO ×2 (10:03→21:02)
[2018-08-27] MEDS: Enoxaparin 40 MG/0.4 ML Syringe SC (10:03)
[2018-08-27] MEDS: Doxycycline 100 MG CAPSULE PO ×2 (10:04→21:02)
--- NOTE | 2018-08-27 12:40 | CASEMGMT ---
HINA JUAN Re-admission note: Pt admitted to [facility] 08/22/18 w/diagnoses of COPD exac and discharged home on Home Liquid O2 on 07/3018. See this HINA JUAN's assessment note. Pt re-admitted 08/26/18 w/acute COPD exacerbation. HINA JUAN to room to talk with pt. Pt confirms she did get liquid O2 portability delivered to her room prior to discharge and Liz also delivered Home Liquid O2 after she arrived home. Discussed discharge planning/needs with pt. As per previously documented, pt is not home-bound and will not qualify for [facility]. Discussed out-pt therapy w/pt and she states she is interested in this. Pt states I'm just concerned about the cost of it, because I have limited income. Pt made aware once script is obtained from , that this can be faxed to out-pt location of her choice and financial information/[id number] cost can be determined prior to the start of therapy. Pt states is interested and would like find out this information and agreeable to [email or web address]. Script obtained from Dr Rocha for Out-pt PT and OT eval and tx. Script faxed to [email or web address]. Call placed to [email or web address] and spoke with iRtu. She was made aware pt would like financial info/[id number] cost determined before she is agreeable to scheduling an appt. Ritu states she will run the financials and contact pt and discuss pt's financial obligation with her as well as schedule appts with her if she is agreeable. Pt made aware. Also discussed CCN with pt at this time. Pt states she has a dog in the home that spazzes out any time anyone new comes to the home or when she has to put him in another location and she is not interested with CCN at this time. Given CCN rac card and pt made aware if she decides in the future she is interested, to discuss this with her PCP. Pt voices understanding. Carla CANTOR RN, CM
[2018-08-27] MEDS: Ondansetron 4 MG/2 ML Vial IV (13:24)
--- NOTE | 2018-08-27 15:32 | CASEMGMT ---
SW assisted pt in completing POA, pt is thinking about LW, has forms at home. SW spoke w/pt about Palliative care also, pt is going to think about it. SW will speak w/pt again in regard to palliative care referral. AURA Purvis
[2018-08-28 03:38] VITALS: PULSE 87; RESP 22
[2018-08-28] MEDS: Ipratropium/Albuterol Sulfate 3 ML AMPUL.NEB INHALATION ×3 (03:38→10:58)
[2018-08-28 07:02] VITALS: PULSE 88; RESP 20; O2SAT 90
[2018-08-28] MEDS: DULoxetine Hcl 60 MG Capsule PO (07:55)
[2018-08-28] MEDS: guaiFENesin 1,200 MG Tablet 1200 MG PO (07:55)
[2018-08-28] MEDS: Doxycycline 100 MG CAPSULE PO (07:55)
[2018-08-28 08:00] VITALS: BP 101/65; PULSE 93; RESP 18; TEMP 36.8; O2SAT 92
--- NOTE | 2018-08-28 09:50 | CASEMGMT ---
Social Work Note SW met with pt, SW familiar with pt from previous admissions. SW asked pt about Palliative Care. Pt denied referral at this time for Palliative Care. SW provided pt with Palliative Care brochure and encouraged her to call for referral if she feels she needs it when she returns home. Pt states understanding, denied additional needs or concerns at this time. Nola Lugo DRIVING TEACHER, PROGRESSIVE CARE UNIT REGISTERED NURSE
--- NOTE | 2018-08-28 09:56 | DCINST_ITS ---
- Discharge Diagnoses Reason(s) for Visit for Discharge Instructions: Shortness of breath You will use the following diet at home:: Regular Your food should be the consistency of: Regular Your liquids should be the consistency of: Regular/Thin Discharge Activity: Return to Normal Activity Additional Instructions: Continue to use your oxygen all the time. Do not take your antibiotics at home. You have completed 5 days of antibiotics in total. Complete your steroid taper. Follow up with Dr. Keith within 2 weeks. You are strongly advised to stop smoking. Allergies/Adverse Reactions: Allergies azithromycin Allergy (Verified 08/26/18 20:15) Hives cucumber Allergy (Verified 08/26/18 20:15) Swelling loratadine [From Claritin] Adverse Reaction (Verified 08/26/18 20:01) Itching prednisone Adverse Reaction (Verified 08/26/18 22:07) DOESN'T SLEEP peaches Allergy (Uncoded 08/26/18 20:15) Swelling Medications to take at Discharge Albuterol Inhaler [Ventolin Hfa] 1 - 2 puff INHALATION Q4H PRN PRN 08/22/18 Duloxetine HCl 60 mg PO DAILY 08/22/18 Melatonin 10 mg PO QHS PRN 08/22/18 Doxycycline 100 mg PO BID 08/26/18 Guaifenesin [Mucinex] 1,200 mg PO BID 08/26/18 Albuterol Aerosols [Ventolin Aerosols] 2.5 mg INHALATION Q2H PRN PRN #1 box 08/28/18 Benzonatate [Tessalon Perle] 100 mg PO 4X/DAY PRN PRN #20 cap 08/28/18 Ensure Enlive 120 ml PO 4X/DAY #100 liquid 08/28/18 Ipratropium/Albuterol Sulfate [Duoneb] 3 ml INHALATION Q4H.RT #1 box 08/28/18 MethylPREDNISolone DosePak [Medrol DosePak] 4 mg PO UD #1 box 08/28/18 Nicotine [Nicoderm] 14 mg TRANSDERM. DAILY #30 patch 08/28/18 The following prescriptions were given: Albuterol Aerosols [Ventolin Aerosols] 2.5 mg INHALATION Q2H PRN PRN #1 box PRN Reason: Shortness of Breath/Wheezing Ipratropium/Albuterol Sulfate [Duoneb] 3 ml INHALATION Q4H.RT #1 box Benzonatate [Tessalon Perle] 100 mg PO 4X/DAY PRN PRN #20 capsule PRN Reason: COUGH Nicotine [Nicoderm] 14 mg TRANSDERM. DAILY #30 patch Prednisone 10 mg PO UD #30 tablet Ensure Enlive 120 ml PO 4X/DAY #100 liquid Primary Care Physician: Andrea Dalton DO [Primary Care Provider] - Please follow up with your Primary Care Physician in: within 2 weeks Test Results: Test results from this visit will be discussed in further detail at your follow- up appointment, if applicable. Please Follow Up With: Jacek Keith MD When: as soon as possible Proposed Discharge Date: 08/28/18
--- NOTE | 2018-08-28 10:13 | DS.PCM_ITS ---
Discharge Date and Diagnosis Date of Admission: 08/26/18 Date of Discharge: 08/28/18 - Primary Discharge Diagnosis Acute COPD exacerbation Severe protein calorie malnutrition - Secondary Discharge Diagnosis Chronic Problems Chronic diarrhea (Chronic) Cancer adenomatous polyp (Chronic) Cachexia (Chronic) Hospital Course and Treatment Imaging Results: Clinical Impression(s) from Imaging Studies Chest X-Ray 08/26/18 20:02 IMPRESSION: Markedly hyperexpanded lungs without acute cardiopulmonary disease or interval change. Electronically Signed: Ad FranciscoDO at 20:32 EDT Tel [phone], Service support , None Operations: None Procedures: None Summary of Care Provided: 63-year-old female with past medical history of COPD, recent nicotine dependence, cachexia, chronic diarrhea who was recently admitted on discharged on 08/26/18 who comes in with same presentation of acute COPD exacerbation. Patient was readmitted to the floor, continued on oxygen, IV Solu-Medrol, breathing treatments and doxycycline. She was recently evaluated in the next day. No wheezes on exam. Patient was counseled to follow-up with his chainstitch hemmer, Dr. Keith within a week. She was given a prescription for Medrol Dosepak as she had complained of allergy with insomnia experienced on prednisone. She knows to follow-up also with her primary care doctor within 1 to 2 weeks. Prescribed a nebulizer with DuoNeb and albuterol nebulizers. Subjective: On the day of discharge, patient was seen and examined patient appears stable on 2 L of oxygen. She denies any fever or chills. Cough is productive of sputum. No fevers or chills. Objective: Physical exam: General: Alert, Oriented x3, Cooperative, No apparent distress, - - Cachectic, comfortable, on 2 L of oxygen HEENT: Atraumatic, PERRLA, EOMI, Normocephalic Oral: Moist Mucosa Neck: Supple Lungs: Diminished, no wheezes appreciated Cardiovascular: Regular rate, Regular Rhythm, Normal S1, Normal S2, No murmurs Abdomen: Bowel Sounds Present, Soft, Non Tender, Non-Distended, No Hepato- splenomegaly Extremities: No edema Skin: No rashes Musculoskeletal: No Tenderness to Palpation of Joints or Extremities Lymphatic: No Cervical, Supraclavicular, or Inguinal Adenopathy Neurological: Cranial nerves II-XII grossly intact, Neuro grossly intact Psych/Mental Status: Normal Affect, Appropriate - Physical Exam Vital Signs Temp Pulse Resp BP Pulse Ox 98.3 F 93 18 101/65 92 08/28/18 08:00 08/28/18 08:00 08/28/18 08:00 08/28/18 08:00 08/28/18 08:00 Oxygen Flow Rate (L/min) 2 Oxygen Delivery Method Nasal Cannula Weight: 32.6 kg Body Mass Index (BMI) 14.0 Intake and Output for Last 24 Hours 08/26/18 08/27/18 08/28/18 23:59 23:59 23:59 Intake Total 460 / 460 440 / 440 Balance 460 / 460 440 / 440 Discharge Diet: No Restrictions Discharge Activity: Return to Normal Activity Home Medications: Medications to take at Discharge Albuterol Inhaler [Ventolin Hfa] 1 - 2 puff INHALATION Q4H PRN PRN 08/22/18 Duloxetine HCl 60 mg PO DAILY 08/22/18 Melatonin 10 mg PO QHS PRN 08/22/18 Doxycycline 100 mg PO BID 08/26/18 Guaifenesin [Mucinex] 1,200 mg PO BID 08/26/18 Albuterol Aerosols [Ventolin Aerosols] 2.5 mg INHALATION Q2H PRN PRN #1 box 08/28/18 Benzonatate [Tessalon Perle] 100 mg PO 4X/DAY PRN PRN #20 cap 08/28/18 Ensure Enlive 120 ml PO 4X/DAY #100 liquid 08/28/18 Ipratropium/Albuterol Sulfate [Duoneb] 3 ml INHALATION Q4H.RT #1 box 08/28/18 MethylPREDNISolone DosePak [Medrol DosePak] 4 mg PO UD #1 box 08/28/18 Nicotine [Nicoderm] 14 mg TRANSDERM. DAILY #30 patch 08/28/18 Following Prescrptions Were Given to Patient: Albuterol Aerosols [Ventolin Aerosols] 2.5 mg INHALATION Q2H PRN PRN #1 box PRN Reason: Shortness of Breath/Wheezing Ipratropium/Albuterol Sulfate [Duoneb] 3 ml INHALATION Q4H.RT #1 box Benzonatate [Tessalon Perle] 100 mg PO 4X/DAY PRN PRN #20 cap PRN Reason: COUGH MethylPREDNISolone DosePak [Medrol DosePak] 4 mg PO UD #1 box Nicotine [Nicoderm] 14 mg TRANSDERM. DAILY #30 patch Ensure Enlive 120 ml PO 4X/DAY #100 liquid Primary Care Physician: Andrea Dalton DO [Primary Care Provider] - Please follow up with your Primary Care Physician in: within 2 weeks Please Follow Up With: Jacek Keith MD When: as soon as possible Disposition: Home Minutes spent on discharge:: 45 Patient Condition:: Stable Medical Necessity - Tobacco Use Smoking Status: Former smoker Tobacco Use: Non-smoker Meaningful Use Info Meaningful Use Diagnoses (Choose all that apply): None applicable Code Visit Inpatient E&M: 40843 Disch Hosp
--- NOTE | 2018-08-28 10:38 | CASEMGMT ---
HINA JUAN received update from hospitalist that patient will need nebulizer machine and medication at discharge. HINA JUNA received script from hospitalist for nebulizer machine and faxed to [employer] that oxygen was setup with. HINA JUAN called [facility] regarding nebulizer medication cost. Duo Neb was $9.47 and Albuterol was $7.53. Patient updated regarding cost of medication and stated it was affordable for her. Patient to discharge home today. Daughter is going to bring in her portable oxygen prior to discharge.
[2018-08-28 10:58] VITALS: PULSE 85; RESP 16
[2018-08-28 11:40] VITALS: BP 107/71; PULSE 99; RESP 16; TEMP 36.7; O2SAT 94
--- NOTE | 2018-08-28 13:49 | CASEMGMT ---
Addendum entered by Christa Clark 08/28/18 14:13: Lyle Desouza @ [facility], [place], she did receive the fax and they have all the info they need. She states someone from [facility] [place] is going to her house right now and states they will check/service her liquid O2 tanks and also a respiratory therapist will be seeing pt and doing an assessment as well. Original Note: HINA JUAN NOTE: Discharge instructions and summary faxed to Liz @ [phone]. Carla CANTOR RN CM
== END 2018-08-28 12:45 | disposition home or self-care (01) | DRG 190 ==
LOC: ED 20:23 → MS3 21:41
PROVIDERS: Admitting Provider Hospitalist; Emergency Provider Emergency Medicine; Family Provider Family Medicine; PCP Family Medicine; Visit Provider Internal Medicine
DX: J44.1 Chronic obstructive pulmonary disease with (acute) exacerbation (principal); E43 Unspecified severe protein-calorie malnutrition; Z68.1 Body mass index [BMI] 19.9 or less, adult; R64 Cachexia; F32.9 Major depressive disorder, single episode, unspecified; G47.00 Insomnia, unspecified; F17.210 Nicotine dependence, cigarettes, uncomplicated
CPT/HCPCS: 71045; 80048; 84484; 85025; 87070; 87205; 93005; 94640; 94667; 94668; 94760; 97161; 97165; 97530; 97802; 99285; J7030; A4216; J2405

== ENCOUNTER 2024-11-02 10:01 | Emergency (ER) | payer MEDICARE, MEDICAID, SELFPAY ==
[2024-11-02 10:03] VITALS: BP 134/91; PULSE 109; RESP 22; TEMP 36.7; O2SAT 93
[2024-11-02] MEDS: 0.9% Normal Saline (1000mL) 1,000 ML 999 ML IV (10:38)
[2024-11-02 10:39] LABS: Hematocrit 39.3 % (37-47); Hemoglobin 13.2 g/dL (12.0-15.0); Immature Granulocytes Count 0.010 X10^3/uL (0.0-0.0); Mean Corp Hgb Conc 33.6 g/dL (32-36); Mean Corpuscular Volume 91.4 fL (81-99); Mean Platelet Vol. 9.2 fl (6.2-12.0); NRBC Flagged by Analyzer 0 % (0-5); Platelet Count 225 K/mm3 (150-450); RBC Distribution Width CV 13.3 % (11.6-14.6); RBC Distribution Width SD 44.3 fl (35.1-43.9); Red Blood Count 4.30 M/mm3 (4.2-5.4); White Blood Count 5.5 K/mm3 (4.4-11.0)
[2024-11-02 10:41] VITALS: BMI 16.9
[2024-11-02 11:06] LABS: Prothrombin Time (Protime)PT. 13.7 SECONDS (11.7-14.9)
[2024-11-02 11:07] LABS: Partial Thromboplast Time 29.6 Seconds (24.1-36.2)
[2024-11-02 11:42] LABS: AST(SGOT) 19 U/L (<=31); Alanine Aminotransfer ALT/SGPT 11 U/L (<=34); Albumin, Serum 4.2 g/dL (3.4-4.8); Alkaline Phosphatase 68 U/L (35-104); Anion Gap 11 (5-15); BUN 11 mg/dL (4-19); BUN/Creat Ratio 12.1 RATIO (10-20); Bilirubin, Direct 0.19 mg/dL (0.00-0.30); Calcium,Total 9.5 mg/dL (7.6-11.0); Carbon Dioxide 23.3 mmol/L (21.0-32.0); Chloride 106 mmol/L (98-108); Estimated Creatinine Clearance 36.42 ml/min (50-250); Globulin 2.2 g/dL (2.2-4.2); Glucose 102 mg/dL (70-99); Potassium 3.6 mmol/L (3.3-5.1)
[2024-11-02 12:03] VITALS: BP 98/65; PULSE 64; RESP 14; O2SAT 95
[2024-11-02 13:08] VITALS: BP 98/64; PULSE 68; RESP 14; TEMP 36.8; O2SAT 95
== END 2024-11-02 13:10 | disposition home or self-care (01) ==
PROVIDERS: Emergency Provider Emergency Medicine; PCP Student in an Organized Health Care Education/Training Program; Visit Provider Emergency Medicine
DX: M25.532 Pain in left wrist (principal); R07.81 Pleurodynia; Z87.891 Personal history of nicotine dependence; W19.XXXA Unspecified fall, initial encounter
CPT/HCPCS: 70450; 71260; 72125; 73030; 73110; 73564; 74177; 80048; 80076; 85025; 85610; 85730; 93005; 96374; 96375; 96376; 99283; Q9967; A4216; J2405